=== PATIENT | male | born 1945 | race Caucasian/White ===

== ENCOUNTER 2019-06-20 06:43 | Day surgery (SDC) | payer MEDICARE ==
[2019-06-15 15:42] VITALS: BMI 31.4
[~2019-06-20 06:43] MED LIST: ALPRAZolam 0.25 MG TAB PO PRN; ALPRAZolam 0.5 MG TAB PO PRN; NITROGLYCERIN SL TABS 0.4 MG TAB SUBLINGUAL PRN; SODIUM CHLORIDE 0.9% 1,000 ML in EMPTY BAG 1 BAG IV ONE
[2019-06-20] MEDS ORDERED: ATORVASTATIN 80 MG TAB PO ONE (07:00)
[2019-06-20] MEDS ORDERED: ASPIRIN 325 MG TAB PO ONE (07:00)
[2019-06-20] MEDS ORDERED: LIDOCAINE 1% INJ 10MG/ML (20 ML MDV) ONE (07:13)
[2019-06-20] MEDS ORDERED: fentaNYL (PF) 50 MCG/ML 2 ML AMP ONE (07:14)
[2019-06-20 07:19] VITALS: TEMP 97.9
[2019-06-20 07:19] LABS: Glucose,Whole Blood 124 mg/dL (75-99)
[2019-06-20] MEDS ORDERED: LIDOCAINE 1% INJ 10MG/ML (20 ML MDV) SQ ONE (07:49)
[2019-06-20] MEDS ORDERED: fentaNYL (PF) 50 MCG/ML 2 ML AMP IVP ONE (07:50)
[2019-06-20] MEDS ORDERED: MIDAZOLAM 2 MG/2 ML VIAL IVP ONE (07:51)
[2019-06-20] MEDS ORDERED: IOPAMIDOL-370 125ML BTL INJ ONE (08:13)
[2019-06-20] MEDS ORDERED: RX INFO: IV CONTRAST WAS GIVEN 1 EACH MISC MISCELLANE PRN ×2 (08:30→08:44)
[2019-06-20] MEDS ORDERED: SODIUM CHLORIDE 0.9% 1,000 ML IV SCH (08:30)
[2019-06-20] MEDS ORDERED: hydrALAZINE HCL 20 MG/ML 1 ML VIAL ONE (08:42)
[2019-06-20] MEDS ORDERED: amLODIPine 5 MG TAB ONE (08:42)
--- NOTE | 2019-06-20 08:54 | P.CARDCATH ---
Date of Procedure: 06/20/19 Preoperative Diagnosis: Recent onset angina Postoperative Diagnosis: In-stent stenosis involving the left main and proximal circumflex Procedure(s) Performed: Left heart catheterization with selective injection of the 2 vein grafts and the LERNER graft and no LV gram Description of Procedure: HISTORY: This is a 73-year-old gentleman with history of of bypass surgeries 2 and also several stent placement and also aortic valve replacement with transcatheter approach. He also had a history of previous cardiac arrest and AICD placement. Patient has been experiencing chest pain size to of new-onset angina. He is advised to have a cardiac catheterization for definitive diagnosis CONSENT:I have discussed the risks, benefits and alternative therapies for the above-mentioned procedure and for both sedation/analgesia as well as necessary blood product administration, if indicated, as they pertain to this patient. The patient has indicated understanding and acceptance of the risks and procedures discussed. PROCEDURE: Patient was brought to the lab in a fasting state. Patient was given some IV sedation. The right groin is infiltrated with lidocaine and right femoral artery was entered using Seldinger technique. A 6-Greek catheter was left in place and selective coronary arteriography and selective injection of the 2 vein grafts and also LERNER graft was performed. LV gram was not performed Patient tolerated the procedure well. Femoral angiogram was performed and manual compression l was applied for hemostasis. No immediate complications were noted and patient was transferred to [facility] in a stable condition Conscious Sedation: Versed 1mg Fentanyl 50 g Duration 31minutes HEMODYNAMICS: The aortic pressure is about 160/80. Left ventricular end- diastolic pressure was not measured. SELECTIVE CORONARY ARTERIOGRAPHY: LEFT MAIN: The left main coronary artery basically leads into the circumflex with a total occlusion of the LAD. There is a stent that extends from the left main into the proximal circumflex. This stented shows diffuse disease with 70-80% stenosis. The circumflex itself seemed to be free of occlusive disease THE LEFT ANTERIOR DESCENDING CORONARY ARTERY:. This is totally occluded THE LEFT CIRCUMFLEX AND IS CORONARY ARTERY: The proximal circumflex was in-stent stenosis and the rest of the circumflex is free of any significant focal disease THE RIGHT CORONARY ARTERY: This is totally occluded. The LERNER graft to the LAD: This is patent throat its length and also to distal anastomosis. The LAD beyond the anastomosis is moderate in caliber with a diffuse disease without any critical lesions. The vein graft to the OM branch: This is totally occluded in the proximal portion where it was stented on multiple medications. The vein graft to the diagonal. The bypass is patent at the proximal and distal anastomosis. The diagonal branch itself is free of occlusive disease. There is a mild to moderate disease in one of the side branches. LEFT VENTRICULOGRAPHY: Not performed FINAL IMPRESSION: Critical lesion involving the stented area of the left main and proximal circumflex. The vein graft to the diagonal and LERNER graft to the LAD and patent. The vein graft to the circumflex is totally occluded. The [place] LAD and [place] RCA totally occluded PLAN: Continuation of medical therapy. . Restenting of the left main and proximal circumflex to be done by Dr. Correia PROGNOSIS: Guarded
[2019-06-20 12:36] VITALS: RESP 16
[2019-06-20 13:57] VITALS: BP 129/63; PULSE 49
== END 2019-06-20 15:49 | disposition home or self-care (01) ==
LOC: CATHCVL 06:43
PROVIDERS: ATTEND Internal Medicine Cardiovascular Disease
DX: I25.119 Atherosclerotic heart disease of native coronary artery with unspecified angina pectoris (principal); T82.855A Stenosis of coronary artery stent, initial encounter; I25.719 Atherosclerosis of autologous vein coronary artery bypass graft(s) with unspecified angina pectoris; I25.82 Chronic total occlusion of coronary artery; I10 Essential (primary) hypertension; I25.2 Old myocardial infarction; I42.9 Cardiomyopathy, unspecified; I47.1 Supraventricular tachycardia; Z87.891 Personal history of nicotine dependence; Z95.1 Presence of aortocoronary bypass graft; Z95.5 Presence of coronary angioplasty implant and graft; Z95.810 Presence of automatic (implantable) cardiac defibrillator; Z95.2 Presence of prosthetic heart valve; Z92.3 Personal history of irradiation; Z79.84 Long term (current) use of oral hypoglycemic drugs; Z79.82 Long term (current) use of aspirin; Z79.899 Other long term (current) drug therapy
CPT/HCPCS: 93455; C1769; J2250; J0360; J2001; J3010; Q9967

== ENCOUNTER 2019-06-22 09:03 | Day surgery (SDC) | payer MEDICARE ==
[2019-06-21 09:23] VITALS: BMI 31.4
[~2019-06-22 09:03] MED LIST changes: +ASPIRIN 325 MG TAB PO STA; +ATORVASTATIN 80 MG TAB PO STA
[2019-06-22 09:30] LABS: Glucose,Whole Blood 116 mg/dL (75-99)
[2019-06-22] MEDS ORDERED: SODIUM CHLORIDE 0.9% 1,000 ML IV ONE (09:32)
[2019-06-22] MEDS ORDERED: hydrALAZINE HCL 20 MG/ML 1 ML VIAL IVP STA (09:36)
[2019-06-22 09:37] LABS: Basophils # (A) 0.1 k/uL (0-0.2); Basophils % (A) 1 %; Eosinophils # (A) 0.2 k/uL (0-0.7); Eosinophils % (A) 2 %; HCT 47.8 % (39.0-53.0); Lymphocytes # (A) 1.1 k/uL (1.0-4.8); Lymphocytes % (A) 15 %; MCH 30.3 pg (25.0-35.0); MCHC 33.5 g/dL (31.0-37.0); MCV 90.4 fL (80.0-100.0); Mean Platelet Volume 7.1; Monocytes # (A) 0.4 k/uL (0-1.0); Monocytes % (A) 5 %; Neutrophils # (A) 5.8 k/uL (1.3-7.7); Neutrophils % (A) 76 %; Platelet Count 171 k/uL (150-450); RBC 5.29 m/uL (4.30-5.90); RDW 13.6 % (11.5-15.5); WBC 7.7 k/uL (3.8-10.6)
[2019-06-22 09:56] LABS: African American GFR (CKD) >90 (>60 ml/min/1.73 sqM); Anion Gap 11 mmol/L; Blood Urea Nitrogen 17 mg/dL (9-20); Calcium 10.2 mg/dL (8.4-10.2); Carbon Dioxide 28 mmol/L (22-30); Chloride 102 mmol/L (98-107); Glucose 130 mg/dL (74-99); Potassium 4.5 mmol/L (3.5-5.1); Sodium 141 mmol/L (137-145)
[2019-06-22] MEDS ORDERED: LIDOCAINE 1% INJ 10MG/ML (20 ML MDV) ONE (10:31)
[2019-06-22] MEDS ORDERED: MIDAZOLAM 2 MG/2 ML VIAL IV ONE ×2 (10:43→10:58)
[2019-06-22] MEDS ORDERED: LIDOCAINE 1% INJ 10MG/ML (20 ML MDV) SQ ONE (10:46)
[2019-06-22] MEDS ORDERED: BIVALIRUDIN BOLUS 250 MG/50 ML IV ONE (10:50)
[2019-06-22] MEDS ORDERED: BIVALIRUDIN 250 MG in SODIUM CHLORIDE 0.9% 36.5 ML IV ONE (10:52)
[2019-06-22] MEDS ORDERED: fentaNYL (PF) 50 MCG/ML 2 ML AMP ONE (11:01)
[2019-06-22] MEDS ORDERED: fentaNYL (PF) 50 MCG/ML 2 ML AMP IV ONE (11:03)
[2019-06-22] MEDS ORDERED: PRASUGREL 10 MG TAB ONE (11:16)
[2019-06-22] MEDS ORDERED: HEPARIN SODIUM 1,000 UN/ML (10ML VL) ONE (11:16)
[2019-06-22] MEDS ORDERED: PRASUGREL 10 MG TAB PO ONE (11:26)
[2019-06-22] MEDS ORDERED: IOPAMIDOL-370 125ML BTL INJ ONE (11:27)
[2019-06-22] MEDS ORDERED: SODIUM CHLORIDE 0.9% 1,000 ML IV SCH (11:30)
--- NOTE | 2019-06-22 11:33 | P.PCN ---
Date of Procedure: 06/22/19 Operative Findings: PERCUTANEOUS CORONARY INTERVENTION Performing physician: Frank Correia M.D. Procedure performed: 1. Selective left coronary angiogram 2. Successful stenting of the proximal left circumflex using 3.25 x 18 mm Xience BRYCE with an excellent angiographic results 3. Successful balloon angioplasty of in-stent restenosis involving the left main coronary artery Indication: This is a pleasant 73-year-old gentleman who sees Dr. Holloway in the office as an outpatient with history of coronary artery disease and prior coronary artery stenting as well as coronary artery bypass grafting as well as transcutaneous aortic valve replacement was experiencing symptoms of chest discomfort. He underwent a heart catheterization recently by Dr. Holloway and was found to have severe triple-vessel coronary artery disease with patent LERNER into LAD and patent vein graft to the diagonal. The left circumflex was unprotected and does have disease in the proximal portion. Also there was se jose in-stent restenosis involving the left main coronary artery. Giving the above finding, PCI of the left circumflex and left main was advised. Approach: Right common femoral artery. Complication: None Level of sedation: Moderate with a sedation length of 33 minutes Procedure description: After obtaining an informed consent the patient was brought to the cardiac laborer mine. The right common femoral artery was cannulated using micropuncture technique, the micropuncture wire passed easily then I placed a 6-Chinese sheath 11 cm in the right common femoral artery. At that point anticoagulation was initiated using Angiomax with bolus and drip. I did engage the left main using JL 3.5 guiding catheter. I did wire the left main and left circumflex using a whisper wire. After that I did balloon angioplasty of the left main and left circumflex proximally using 3.0 x 15 mm balloon. After that I did balloon angioplasty again of the left main and left circumflex using 2.5 x 10 mm angiosculp balloon. The balloon was inflated under 18 marcel for 20 seconds each time. Subsequently I did stenting of the proximal left circumflex using 3.25 x 18 mm Xience BRYCE where the stent was positioned under fluoroscopy guidance and deployed under 18 marcel for 20 seconds. After that I did postdilated dictation of the stented segment in the left circumflex using 3.5 x 15 mm NC balloon which was inflated under 20 marcel for 10 seconds inside the stent in the left circumflex then in the left main coronary artery as well. The final angiographic results looks good with reduction of stenosis from 70-80% to 0%. The procedure was completed without any complications Postprocedure management: #1 dual antiplatelet therapy #2 risk factors modifications #3 follow-up with Dr. Dr. Holloway
[2019-06-22] MEDS ORDERED: RX INFO: IV CONTRAST WAS GIVEN 1 EACH MISC MISCELLANE PRN (16:52)
[2019-06-22] MEDS: METOPROLOL TARTRATE 25 MG TAB PO SCH (20:07)
[2019-06-22 21:04] LABS: Glucose,Whole Blood 183 mg/dL (75-99)
[2019-06-22 23:21] VITALS: RESP 18
[2019-06-23 06:05] LABS: Glucose,Whole Blood 115 mg/dL (75-99)
[2019-06-23 07:11] LABS: Basophils % (A) 0 %; Eosinophils # (A) 0.2 k/uL (0-0.7); Eosinophils % (A) 2 %; HCT 45.9 % (39.0-53.0); HGB 15.1 gm/dL (13.0-17.5); Lymphocytes # (A) 1.1 k/uL (1.0-4.8); Lymphocytes % (A) 14 %; MCH 30.1 pg (25.0-35.0); MCHC 32.9 g/dL (31.0-37.0); MCV 91.3 fL (80.0-100.0); Mean Platelet Volume 6.7; Monocytes # (A) 0.5 k/uL (0-1.0); Monocytes % (A) 6 %; Neutrophils # (A) 5.8 k/uL (1.3-7.7); Neutrophils % (A) 76 %; Platelet Count 137 k/uL (150-450); RBC 5.03 m/uL (4.30-5.90); RDW 13.6 % (11.5-15.5); WBC 7.6 k/uL (3.8-10.6)
[2019-06-23 07:31] LABS: African American GFR (CKD) >90 (>60 ml/min/1.73 sqM); Anion Gap 7 mmol/L; Blood Urea Nitrogen 16 mg/dL (9-20); Calcium 9.6 mg/dL (8.4-10.2); Carbon Dioxide 29 mmol/L (22-30); Chloride 103 mmol/L (98-107); Glucose 122 mg/dL (74-99); Potassium 4.7 mmol/L (3.5-5.1); Sodium 139 mmol/L (137-145)
[2019-06-23 08:02] VITALS: PULSE 53
[2019-06-23 08:03] VITALS: BP 185/78; TEMP 97.9
[2019-06-23] MEDS: METOPROLOL TARTRATE 25 MG TAB PO SCH (08:04)
--- NOTE | 2019-06-23 08:22 | P.DS ---
Providers Date of admission: 06/22/2019 Attending physician: Frank Garcia Primary care physician: Calin Meneses MD Hospital Course: This is a pleasant 73-year-old gentleman with a past medical history significant for coronary artery disease with prior stenting and CABG what was experiencing chest discomfort recently and underwent a heart catheterization by Dr. Holloway where he was found to have severe disease involving the left main and proximal left circumflex. The patient underwent yesterday successful balloon angioplasty of the left main coronary artery and successful stenting of the proximal left circumflex coronary artery. I'll follow-up with him today, is doing good and he is asymptomatic. The right groin is soft and nontender and without any bruises. The patient is going to be discharged home on dual antiplatelet therapy and he will follow-up was Dr. Holloway in the office Plan - Discharge Summary Discharge Rx Participant: Yes New Discharge Prescriptions: Continue Isosorbide Mononitrate ER [Imdur] 60 mg PO DAILY Acetaminophen [Tylenol] 500 mg PO DAILY Furosemide [Lasix] 20 mg PO DAILY Atorvastatin [Lipitor] 80 mg PO DAILY Prasugrel [Effient] 10 mg PO DAILY Losartan [Cozaar] 50 mg PO DAILY Aspirin EC [Ecotrin Low Dose] 81 mg PO DAILY Metoprolol Tartrate [Lopressor] 25 mg PO BID Multivit-Min/FA/Lycopen/Lutein [Centrum Silver Tablet] 1 each PO DAILY Discontinued metFORMIN HCL [Glucophage] 1,000 mg PO BID No Action metFORMIN HCL 1,000 mg PO BID Discharge Medication List Acetaminophen [Tylenol] 500 mg PO DAILY 06/15/19 [History] Aspirin EC [Ecotrin Low Dose] 81 mg PO DAILY 06/15/19 [History] Atorvastatin [Lipitor] 80 mg PO DAILY 06/15/19 [History] Furosemide [Lasix] 20 mg PO DAILY 06/15/19 [History] Isosorbide Mononitrate ER [Imdur] 60 mg PO DAILY 06/15/19 [History] Losartan [Cozaar] 50 mg PO DAILY 06/15/19 [History] Metoprolol Tartrate [Lopressor] 25 mg PO BID 06/15/19 [History] Multivit-Min/FA/Lycopen/Lutein [Centrum Silver Tablet] 1 each PO DAILY 06/15/19 [History] Prasugrel [Effient] 10 mg PO DAILY 06/15/19 [History] metFORMIN HCL 1,000 mg PO BID 06/22/19 [History] Follow up Appointment(s)/Referral(s): Negrito Holloway MD [STAFF PHYSICIAN] - 06/30/19 1:15 pm () Patient Instructions/Handouts: *Surgery [facility] - After Heart Catheterization - Meat [employer]ver Instructions, Left Heart Catheterization (DC)
[2019-06-23] MEDS ORDERED: LOSARTAN 50 MG TAB PO SCH (09:00)
[2019-06-23] MEDS ORDERED: ISOSORBIDE MONONITRATE ER 60 MG TAB.ER.24H PO SCH (09:00)
[2019-06-23] MEDS ORDERED: FUROSEMIDE 20 MG TAB PO SCH (09:00)
[2019-06-23] MEDS ORDERED: ACETAMINOPHEN TAB 500 MG TAB PO SCH (09:00)
[2019-06-23] MEDS ORDERED: MULTIVITAMINS, THERA 1 EACH TAB PO SCH (09:00)
[2019-06-23] MEDS ORDERED: ATORVASTATIN 80 MG TAB PO SCH (09:00)
[2019-06-23] MEDS ORDERED: PRASUGREL 10 MG TAB PO SCH (09:00)
[2019-06-23] MEDS ORDERED: ASPIRIN 81 MG PO SCH (09:00)
== END 2019-06-23 09:52 | disposition home or self-care (01) ==
LOC: CATHCVL 09:03 → 3SCARD 16:37 → CATHCVL 06-23 09:52
PROVIDERS: ATTEND Internal Medicine Interventional Cardiology
DX: I25.10 Atherosclerotic heart disease of native coronary artery without angina pectoris (principal); T82.855A Stenosis of coronary artery stent, initial encounter; I10 Essential (primary) hypertension; I47.2 Ventricular tachycardia; I42.9 Cardiomyopathy, unspecified; E78.5 Hyperlipidemia, unspecified; E11.9 Type 2 diabetes mellitus without complications; E78.00 Pure hypercholesterolemia, unspecified; Z87.891 Personal history of nicotine dependence; Z92.3 Personal history of irradiation; E66.9 Obesity, unspecified; Z68.30 Body mass index [BMI] 30.0-30.9, adult; I25.2 Old myocardial infarction; Z95.5 Presence of coronary angioplasty implant and graft; Z95.810 Presence of automatic (implantable) cardiac defibrillator; Z95.1 Presence of aortocoronary bypass graft; Z95.2 Presence of prosthetic heart valve; Z79.84 Long term (current) use of oral hypoglycemic drugs
CPT/HCPCS: 92920; 80048 ×2; 85025 ×2; C9600; C1769 ×3; C1887 ×2; C1725 ×3; C1894; C1874; J2250; J0360; J2001; J3010; J0583; Q9967

== ENCOUNTER 2020-09-18 08:59 | Inpatient (IN) | payer MEDICARE ==
[2020-09-18] MEDS ORDERED: NITROGLYCERIN OINT 1 INCH/GM PACKET TOPICAL STA (09:09)
--- NOTE | 2020-09-18 09:12 | ED ---
General Adult HPI - General Chief complaint: Chest Pain Stated complaint: chest pain Source: patient Mode of arrival: EMS Limitations: no limitations - History of Present Illness Initial comments: Dictation was produced using [employer] dictation software. please excuse any grammatical, word or spelling errors. This patient was cared for during a federal and state declared state of emergency secondary to Covid 19 Chief Complaint: 75-year-old male presents as a transfer from [facility] for unstable angina History of Present Illness: 75-year-old male who has past medical history of coronary artery disease, status post CABG and coronary artery stents. Presents to us after initially presenting to [facility] for chest pain. Patient states he woke up this morning with substernal chest pressure. Denies any radiation of symptoms to his shoulders or jaw. He took 2 nitroglycerin without any alleviation of his symptoms. He read that [facility] where he was evaluated. His first troponin was negative. His EKG was concerning for ischemia versus ST segment elevation [place]. I did get some history from Dr. Ford at [facility]. Initially,, He did mention that there was concerning ST changes which may represent STEMI. Subsequently I received a call after from Dr. Ford who did not feel patient's clinical presentation was consistent with ST segment elevation [place] but instead unstable angina. He started on nitroglycerin drip. Patient was started on nitroglycerin drip at [facility] his symptoms improved. Patient is a history of H fibrillation. He takes apixaban and metoprolol for his A. fib. He did not take his metoprolol this morning. Patient evaluated at the bedside found to be stable. Denies any chest pain currently. He feels asymptomatic. The ROS documented in this emergency department record has been reviewed and confirmed by me. Those systems with pertinent positive or negative responses have been documented in the HPI. All other systems are other negative and/or noncontributory. PHYSICAL EXAM: General Impression: Alert and oriented x3, not in acute distress HEENT: Normocephalic atraumatic, extra-ocular movements intact, pupils equal and reactive to light bilaterally, mucous membranes moist. Cardiovascular: Heart regular rate and rhythm Chest: Able to complete full sentences, no retractions, no tachypnea Abdomen: abdomen soft, non-tender, non-distended, no organomegaly Musculoskeletal: Pulses present and equal in all extremities, no peripheral edema Motor: no focal deficits noted Neurological: CN II-XII grossly intact, no focal motor or sensory deficits noted Skin: Intact with no visualized rashes Psych: Normal affect and mood ED course: 5-year-old male transfer from [facility] for unstable angina. Transfer documentation was reviewed. Patient had negative labs. He did have multiple EKGs which were reviewed that show some ST changes concerning for acute coronary syndrome. Repeat EKG was performed immediately after being placed in room 6. EKG shows A. fib with RVR with a ventricular rate of 120 QRS 136 and QTc 12/03/2004. He does have a right bundle branch block without any concerning findings for ischemia or infarction. In fact his EKG is comparable to EKG performed on 06/22/2019. Heating Operators Engineer Dr. Holloway was called prior to patient's arrival in our emergency department. Upon patient's arrival in the emergency Department Dr. Holloway evaluated patient. Patient is benign appearing with EKG not showing STEMI. No indication for record label internship activation at this time. Case discussed Dr. park who is willing to accept patients care. EKG interpretation: Ventricular rate 120, a fibrillation with rapid ventricular rate, QRS 136, QTC 505. No NV prolongation, no QTC prolongation, no ST or T-wave changes noted. EKG compared to per showing no changes. Overall, this EKG is unremarkable - Related Data Home Medications Medication Instructions Recorded Confirmed Acetaminophen [Tylenol] 500 mg PO DAILY 06/15/19 06/21/19 Aspirin EC [Ecotrin Low Dose] 81 mg PO DAILY 06/15/19 06/22/19 Atorvastatin [Lipitor] 80 mg PO DAILY 06/15/19 06/22/19 Furosemide [Lasix] 20 mg PO DAILY 06/15/19 06/22/19 Isosorbide Mononitrate ER [Imdur] 60 mg PO DAILY 06/15/19 06/22/19 Losartan [Cozaar] 50 mg PO DAILY 06/15/19 06/22/19 Metoprolol Tartrate [Lopressor] 25 mg PO BID 06/15/19 06/22/19 Multivit-Min/FA/Lycopen/Lutein 1 each PO DAILY 06/15/19 06/22/19 [Centrum Silver Tablet] Prasugrel [Effient] 10 mg PO DAILY 06/15/19 06/22/19 metFORMIN HCL 1,000 mg PO BID 06/22/19 06/22/19 Allergies Allergy/AdvReac Type Severity Reaction Status Date / Time No Known Allergies Allergy Verified 09/18/20 09:08 Review of Systems ROS Statement: Those systems with pertinent positive or pertinent negative responses have been documented in the HPI. ROS Other: All systems not noted in ROS Statement are negative. Past Medical History Past Medical History: Atrial Fibrillation, Chest Pain / Angina, Diabetes Mellitus, Hyperlipidemia, Hypertension, Myocardial Infarction ([place]), Sleep Apnea/CPAP/BIPAP Last Myocardial Infarction Date:: 1993 History of Any Multi-Drug Resistant Organisms: None Reported Past Surgical History: Appendectomy, Coronary Bypass/CABG, Heart Cathet erization, Heart Catheterization With Stent, Tonsillectomy Additional Past Surgical History / Comment(s): stenting and angioplasty left lower extremity and heart cath 06-20-19,CABG x2, aortic valve replaced,brachytherapy,. 06/22/2019- heart cath stent x1 L Circ, and ballon to L main Past Anesthesia/Blood Transfusion Reactions: No Reported Reaction Date of Last Stent Placement:: 2018 Past Psychological History: No Psychological Hx Reported Smoking Status: Former smoker Past Alcohol Use History: Rare Past Drug Use History: None Reported - Past Family History Mother Family Medical History: No Reported History Additional Family Medical History / Comment(s): Heart disease at 64 Father Family Medical History: Prostate Disorder Additional Family Medical History / Comment(s): of Uremic poisioning, had heart disease. Bladder or prostate CA, General Exam Limitations: no limitations Course Vital Signs 09/18/20 09/18/20 09:00 09:17 Temperature 98.2 F Pulse Rate 120 H 87 Respiratory 16 18 Rate Blood Pressure 126/106 138/109 O2 Sat by Pulse 98 98 Oximetry Disposition Clinical Impression: ACS (acute coronary syndrome) Disposition: ADMITTED IP TO THIS HOSP Condition: Fair Referrals: Calin eMneses MD [Primary Care Provider] - 1-2 days Decision Time: 09:41
[2020-09-18] MEDS ORDERED: METOPROLOL TARTRATE 5 MG/5 ML VIAL IVP SCH (09:15)
[2020-09-18] MEDS ORDERED: NITROGLYCERIN SL TABS 0.4 MG TAB SUBLINGUAL PRN ×2 (09:35→11:22)
[2020-09-18] MEDS ORDERED: ALPRAZolam 0.5 MG TAB PO PRN (11:22)
[2020-09-18] MEDS ORDERED: ALPRAZolam 0.25 MG TAB PO PRN (11:22)
[2020-09-18] MEDS ORDERED: METOPROLOL TARTRATE 50 MG TAB PO STA (12:11)
[2020-09-18] MEDS ORDERED: amLODIPine 5 MG TAB PO STA (12:14)
[2020-09-18] MEDS ORDERED: HEPARIN SODIUM,PORCINE 5,000 UNIT/ML 1 ML VIAL IV ONE (12:14)
[2020-09-18] MEDS ORDERED: HEPARIN SODIUM,PORCINE 5,000 UNIT/ML 1 ML VIAL IV PRN (12:14)
[2020-09-18 12:25] LABS: Basophils # (A) 0.1 k/uL (0-0.2); Basophils % (A) 1 %; Eosinophils # (A) 0.1 k/uL (0-0.7); Eosinophils % (A) 2 %; HCT 48.8 % (39.0-53.0); HGB 16.2 gm/dL (13.0-17.5); Lymphocytes % (A) 12 %; MCH 29.5 pg (25.0-35.0); MCHC 33.2 g/dL (31.0-37.0); Mean Platelet Volume 9.6; Monocytes # (A) 0.4 k/uL (0-1.0); Monocytes % (A) 5 %; Neutrophils # (A) 6.6 k/uL (1.3-7.7); Neutrophils % (A) 79 %; Platelet Count 155 k/uL (150-450); RBC 5.49 m/uL (4.30-5.90); RDW 13.7 % (11.5-15.5); WBC 8.3 k/uL (3.8-10.6)
[2020-09-18] MEDS ORDERED: ATORVASTATIN 80 MG TAB PO ONE (12:30)
[2020-09-18] MEDS ORDERED: DEXTROSE 5% IN WATER 100 ML with AMIODARONE 150 MG IV ONE (12:30)
[2020-09-18 12:31] LABS: African American GFR (CKD) >90 (>60 ml/min/1.73 sqM); Anion Gap 9 mmol/L; Blood Urea Nitrogen 13 mg/dL (9-20); Calcium 9.8 mg/dL (8.4-10.2); Carbon Dioxide 27 mmol/L (22-30); Chloride 103 mmol/L (98-107); Glucose 148 mg/dL (74-99); Non-African American GFR(CKD) 87 (>60 ml/min/1.73 sqM); Potassium 4.5 mmol/L (3.5-5.1); Sodium 139 mmol/L (137-145)
--- NOTE | 2020-09-18 12:31 | P.HPIM ---
History of Present Illness This is a pleasant 75 years old male with past medical history of coronary artery disease status post prior stenting and CABG. She had repeat cardiac cath last year and found to have severe disease involving the left main and proximal left circumflex arteries status post PCI and stent of the left circumflex artery and balloon angioplasty of the left main coronary artery. His locks tender is Dr. Holloway. Other medical problems including atrial fibrillation on Eliquis, diabetes mellitus, hypertension, hyperlipidemia. Patient was transferred from [facility] where he presented there for having chest pain started this a.m. about 4:00, 3:00 pressure, central, nonradiating 90/10 in severity with no associated shortness of breath or coughing. No dizziness or palpitation. He denies smoking, alcohol or illicit drugs At [facility] his sodium was 137, potassium 4, glucose 152, calcium 9.8, creatinine 0.9, chloride a is not detected, troponin less than 0.03, WBC 8.5K, platelets 150 1K, hemoglobin 16.3. Chest x-ray report is reviewed which mentioned and no consolidation. After his been transferred and he got treated in the emergency room he developed an episode of hypotension, locks tender placed him on amiodarone drip On admission his troponin is elevated 0.06 EKG showing atrial fibrillation with heart rate of 120 Review of Systems CONSTITUTIONAL: No fever, no malaise, no fatigue. HEENT: No recent visual problems or hearing problems. Denied any sore throat. CARDIOVASCULAR: No orthopnea, PND, no palpitations, no syncope. PULMONARY: No shortness of breath, no cough, no hemoptysis. GASTROINTESTINAL: No diarrhea, no nausea, no vomiting, no abdominal pain. Normoactive bowel sounds. NEUROLOGICAL: No headaches, no weakness, no numbness. HEMATOLOGICAL: Denies any bleeding or petechiae. GENITOURINARY: Denies any burning micturition, frequency, or urgency. MUSCULOSKELETAL/RHEUMATOLOGICAL: Denies any joint pain, swelling, or any muscle pain. ENDOCRINE: Denies any polyuria or polydipsia. Past Medical History Past Medical History: Atrial Fibrillation, Chest Pain / Angina, Diabetes Mellitus, Hyperlipidemia, Hypertension, Myocardial Infarction ([place]), Sleep Apnea/CPAP/BIPAP Last Myocardial Infarction Date:: 1993 History of Any Multi-Drug Resistant Organisms: None Reported Past Surgical History: Appendectomy, Coronary Bypass/CABG, Heart Catheterization, Heart Catheterization With Stent, Tonsillectomy Additional Past Surgical History / Comment(s): stenting and angioplasty left lower extremity and heart cath 06-20-19,CABG x2, aortic valve replaced,brachytherapy,. 06/22/2019- heart cath stent x1 L Circ, and ballon to L main Past Anesthesia/Blood Transfusion Reactions: No Reported Reaction Date of Last Stent Placement:: 2018 Past Psychological History: No Psychological Hx Reported Smoking Status: Former smoker Past Alcohol Use History: Rare Past Drug Use History: None Reported - Past Family History Mother Family Medical History: No Reported History Additional Family Medical History / Comment(s): Heart disease at 64 Father Family Medical History: Prostate Disorder Additional Family Medical History / Comment(s): of Uremic poisioning, had heart disease. Bladder or prostate CA, Medications and Allergies Home Medications Medication Instructions Recorded Confirmed Type Aspirin EC [Ecotrin Low Dose] 81 mg PO DAILY 06/15/19 09/18/20 History Atorvastatin [Lipitor] 80 mg PO DAILY 06/15/19 09/18/20 History Furosemide [Lasix] 20 mg PO DAILY 06/15/19 09/18/20 History Isosorbide Mononitrate ER [Imdur] 60 mg PO DAILY 06/15/19 09/18/20 History Losartan [Cozaar] 50 mg PO DAILY 06/15/19 09/18/20 History Metoprolol Tartrate [Lopressor] 25 mg PO BID 06/15/19 09/18/20 History Multivit-Min/FA/Lycopen/Lutein 1 tab PO DAILY 06/15/19 09/18/20 History [Centrum Silver Tablet] metFORMIN HCL 1,000 mg PO BID 06/22/19 09/18/20 History Apixaban [Eliquis] 5 mg PO BID 09/18/20 09/18/20 History Aspirin 324 mg PO ONCE PRN 09/18/20 09/18/20 History Nitroglycerin Sl Tabs [Nitrostat] 0.4 mg SL Q5M PRN 09/18/20 09/18/20 History Tamsulosin [Flomax] 0.4 mg PO DAILY 09/18/20 09/18/20 History traZODone HCL 50 mg PO HS 09/18/20 09/18/20 History Allergies Allergy/AdvReac Type Severity Reaction Status Date / Time No Known Allergies Allergy Verified 09/18/20 09:42 Physical Exam Vitals: Vital Signs Temp Pulse Resp BP Pulse Ox 09/18/20 12:05 133 H 18 213/138 98 09/18/20 10:30 66 20 97 09/18/20 10:00 75 16 146/91 98 09/18/20 09:17 87 18 138/109 98 09/18/20 09:00 98.2 F 120 H 16 126/106 98 Intake and Output 09/17/20 09/18/20 09/18/20 22:59 06:59 14:59 Other: Weight 87.543 kg GENERAL: The patient is alert and oriented x3, not in any acute distress. Well developed, well nourished. HEENT: Pupils are round and equally reacting to light. EOMI. No scleral icterus. No conjunctival pallor. Normocephalic, atraumatic. No pharyngeal erythema. No thyromegaly. CARDIOVASCULAR: S1 and S2 present. No murmurs, rubs, or gallops. -PULMONARY: Chest is clear to auscultation, no wheezing or crackles. Central chest wall scar ABDOMEN: Soft, nontender, nondistended, normoactive bowel sounds. No palpable organomegaly. MUSCULOSKELETAL: No joint swelling or deformity. EXTREMITIES: No cyanosis, clubbing, or pedal edema. NEUROLOGICAL: Gross neurological examination did not reveal any focal deficits. SKIN: No rashes. No petechiae Results Labs: Abnormal Lab Results - Last 24 Hours (Table) 09/18/20 Range/Units 09:18 Troponin I 0.065 H* (0.000-0.034) ng/mL Assessment and Plan Assessment: None STEMI, and in view of his history of coronary artery disease status post CABG, stenting of the left circumflex artery Chronic A. fib with RVR, was on Eliquis 2 diabetes mellitus Hypertension Hyperlipidemia Plan: This is a pleasant 75 years old male who presents with unstable angina and A. fib with RVR, he is already on Eliquis anticoagulation, which is his wish to heparin drip and so started on amiodarone drip and continue with beta everardo and nitroglycerin. Cardiology consult. Continue with aspirin Labs and medication were reviewed.. Continue same treatment. Continue with symptomatic treatment. Resume home medication. Monitor lytes and vitals. DVT and GI prophylaxis. Further recommendations depends on the clinical course of the patient DVT prophylaxis: heparin GI Prophylaxis: Pepcid PT/OT: Pending Prognosis is guarded
[2020-09-18] MEDS ORDERED: AMIODARONE 360 MG in DEXTROSE 5% IN WATER 200 ML IV ONE ×2 (12:40)
[2020-09-18 12:43] LABS: Partial Thromboplastin Time 26.2 sec (22.0-30.0); Prothrombin Time 10.9 sec (9.0-12.0)
[2020-09-18] MEDS: HEPARIN SOD,PORK IN 0.45% NACL 25,000 UNIT in 0.45% NACL 1 250ML.BAG IV SCH (12:44)
[2020-09-18] MEDS: LOSARTAN 50 MG TAB PO SCH (12:52)
[2020-09-18] MEDS: ATORVASTATIN 80 MG TAB PO ONE (12:52)
[2020-09-18] MEDS: FUROSEMIDE 20 MG TAB PO SCH (12:52)
[2020-09-18 16:55] LABS: Glucose,Whole Blood 144 mg/dL (75-99)
[2020-09-18] MEDS: INSULIN ASPART (NovoLOG) 100 UNIT/ML VIAL SQ SCH ×3 (17:29→21:17)
[2020-09-18] MEDS: ISOSORBIDE MONONITRATE ER 60 MG TAB.ER.24H PO SCH (17:30)
--- NOTE | 2020-09-18 17:39 | ECHOF ---
Referral Reason:LV function MEASUREMENTS -------- HEIGHT: 167.6 cm WEIGHT: 87.5 kg BP: 173/92 RVIDd: 3.5 cm (< 3.3) IVSd: 1.4 cm (0.6 - 1.1) LVIDd: 3.4 cm (3.9 - 5.3) LVPWd: 1.3 cm (0.6 - 1.1) IVSs: 1.7 cm LVIDs: 2.7 cm LVPWs: 1.7 cm LA Diam: 4.1 cm (2.7 - 3.8) LAESV Index (A-L): 45.44 ml/m Ao Diam: 3.0 cm (2.0 - 3.7) AV Cusp: 1.8 cm (1.5 - 2.6) MV EXCURSION: 7.744 mm (> 18.000) MV EF SLOPE: 31 mm/s (70 - 150) EPSS: 1.3 cm AV maxP.36 mmHg AV meanP.25 mmHg RAP: 5.00 mmHg RVSP: 28.81 mmHg FINDINGS -------- Atrial fibrillation. Pacerwire seen in RV and RA. This was a technically difficult study with suboptimal views. The left ventricular size is normal. There is moderate concentric left ventricular hypertrophy. O verall left ventricular systolic function is normal with, an EF between 55 - 60 %. The right ventricle is mildly enlarged. LA is severely dilated >40 ml/m2 3 ml of Lumason was utilized for enhancement of images. Interatrial and interventricular septum intact. There is mild aortic valve sclerosis. Moderate mitral annular calcification present. Mild mitral regurgitation is present. Mild mitral stenosis. Mild tricuspid regurgitation present. Right ventricular systolic pressure is normal at < 35 mmHg. The right ventricular systolic pressure, as measured by Doppler, is 28.81mmHg. The pulmonic valve was not well visualized. The aortic root size is normal. Normal inferior vena cava with normal inspiratory collapse consistent with estimated right atrial pre ssure of 5 mmHg. There is no pericardial effusion. CONCLUSIONS -------- 1. This was a technically difficult study with suboptimal views. 2. There is moderate concentric left ventricular hypertrophy. 3. Overall left ventricular systolic function is normal with, an EF between 55 - 60 %. 4. The right ventricle is mildly enlarged. 5. LA is severely dilated >40 ml/m2 6. There is mild aortic valve sclerosis. 7. Moderate mitral annular calcification present. 8. Mild mitral regurgitation is present. 9. Mild mitral stenosis. 10. Mild tricuspid regurgitation present. 11. There is no pericardial effusion. SHOER: Willa Mays RDCS
[2020-09-18] MEDS ORDERED: SODIUM CHLORIDE 0.9% 1,000 ML in EMPTY BAG 1 BAG IV ONE (18:00)
[2020-09-18] MEDS ORDERED: AMIODARONE 450 MG in DEXTROSE 5% IN WATER 250 ML IV SCH ×2 (18:30)
--- NOTE | 2020-09-18 19:08 | CONS ---
CONSULTATION Mr. Levine is a 75-year-old gentleman with a history of ischemic heart disease with previous bypass surgery x2. The patient also had several stent placements. The patient had a catheterization in May of last year and had restenting of the left main and proximal left circumflex coronary arteries. At that time he was found to have a patent LERNER graft to the LAD, and vein grafts to the diagonal were patent. The vein graft to the circumflex was totally occluded. The [place] LAD and [place] RCA were totally occluded. The patient had repeat stenting of the left main and circumflex coronary arteries. Now the patient presented to the hospital with complaints of chest pain starting this morning when he woke up. The patient took some nitroglycerin at home, with partial relief. Subsequently paramedics were called and the patient went to the emergency room of [facility]. The patient was initiated on IV nitroglycerin with relief of pain. His EKG showed atrial fibrillation with variable ventricular response and right bundle branch block pattern without any acute change of STEMI. However, his symptoms are suggestive of unstable angina and possible non-STEMI. He is being admitted to the hospital. The patient most probably will be evaluated by cardiac catheterization tomorrow. PAST MEDICAL HISTORY: His past medical history is significant for coronary artery disease and bypass surgery x2, previous myocardial infarction and cardiac arrest, AICD placement, aortic valve replacement with a tissue valve, multiple stent placements, and the graft to the circumflex which is totally occluded. His past medical history is also significant for hypertension, hyperlipidemia, diabetes mellitus, sleep apnea and recently atrial fibrillation. The patient was on Xarelto. MEDICATIONS: His medications prior to admission included: 1. Metformin 1000 mg b.i.d. 2. Trazodone 50 mg at bedtime. 3. Flomax. 4. Nitroglycerin sublingually. 5. Metoprolol tartrate 25 mg b.i.d. 6. Losartan 50 mg daily. 7. Isosorbide mononitrate 60 mg daily. 8. Lasix 20 mg daily. 9. Atorvastatin 80 mg daily. 10.Aspirin. 11.Eliquis 5 mg p.o. b.i.d. ALLERGIES: NO KNOWN ALLERGIES. REVIEW OF SYSTEMS: As per the chart. PHYSICAL EXAMINATION: Physical examination at this time reveals a 75-year-old gentleman who is alert, oriented, does not appear to be in acute distress at the time of my examination. His blood pressure is running about 160/75, pulse is about 80 to 100. Respirations are 17. Lungs appear to be clear. Heart is regular. Soft systolic murmur heard. Abdomen is soft. Extremities have no significant edema. EKG showed atrial fibrillation with a rapid ventricular response and also right bundle branch block. FINAL IMPRESSION: 1. Unstable angina/cah-[id number]-elevation myocardial infarction. 2. Ischemic heart disease with previous bypass surgery x2 and also multiple stent placements. 3. Previous myocardial infarction and cardiac arrest. 4. Status post aortic valve replacement with bovine valve. 5. Diabetes mellitus. 6. Hypertension. 7. Hypercholesterolemia. PLAN: Will continue IV nitroglycerin and heparin. Will hold Eliquis. We also may start him on amiodarone for better control of heart rate. If necessary, we will add Norvasc for blood pressure control. Echocardiogram will be obtained. Further recommendations will depend upon the clinical course. The patient is being scheduled for catheterization tomorrow. Patient is fully aware of the risks and benefits of the procedure. MMODL / IJN: [id number] /
[2020-09-18 20:43] LABS: Glucose,Whole Blood 178 mg/dL (75-99)
[2020-09-18] MEDS ORDERED: METOPROLOL TARTRATE 25 MG TAB PO SCH (21:00)
[2020-09-18] MEDS: traZODone HCL 50 MG TAB PO SCH (21:09)
[2020-09-18] MEDS: FAMOTIDINE 20 MG/2 ML VIAL IV SCH (21:17)
[2020-09-18] MEDS: METOPROLOL TARTRATE 12.5 MG TAB PO SCH (21:18)
[2020-09-19 05:58] LABS: Glucose,Whole Blood 119 mg/dL (75-99)
[2020-09-19] MEDS: INSULIN ASPART (NovoLOG) 100 UNIT/ML VIAL SQ SCH ×4 (06:35→20:43)
[2020-09-19] MEDS: ISOSORBIDE MONONITRATE ER 60 MG TAB.ER.24H PO SCH (06:41)
[2020-09-19] MEDS: ATORVASTATIN 80 MG TAB PO ONE (06:41)
[2020-09-19] MEDS: FAMOTIDINE 20 MG/2 ML VIAL IV SCH ×2 (06:41→20:43)
[2020-09-19] MEDS: TAMSULOSIN 0.4 MG CAP.ER.24H PO SCH (06:41)
[2020-09-19] MEDS: LOSARTAN 50 MG TAB PO SCH (06:41)
[2020-09-19] MEDS ORDERED: ASPIRIN 325 MG TAB PO ONE (07:00)
[2020-09-19] MEDS ORDERED: HEPARIN SODIUM,PORCINE 10,000 UNIT in SODIUM CHLORIDE 0.9% 1,000 ML IRRIGATION PRN (07:00)
[2020-09-19] MEDS ORDERED: HEPARIN SODIUM,PORCINE 2,500 UNIT in SODIUM CHLORIDE 0.9% 250 ML IRRIGATION PRN (07:00)
[2020-09-19] MEDS ORDERED: LIDOCAINE 1% INJ 10MG/ML (20 ML MDV) ONE ×2 (08:28→09:23)
[2020-09-19] MEDS ORDERED: ASPIRIN 81 MG PO SCH (09:00)
[2020-09-19] MEDS ORDERED: ASPIRIN 325 MG TAB PO SCH (09:00)
[2020-09-19] MEDS ORDERED: fentaNYL (PF) 50 MCG/ML 2 ML AMP ONE (09:08)
[2020-09-19] MEDS ORDERED: MIDAZOLAM 2 MG/2 ML VIAL IVP ONE (09:11)
[2020-09-19] MEDS ORDERED: fentaNYL (PF) 50 MCG/ML 2 ML AMP IVP ONE (09:11)
[2020-09-19] MEDS ORDERED: IV FLUID CONTINUATION 600 ML IV ONE (09:12)
[2020-09-19 09:16] LABS: Basophils % (A) 1 %; Eosinophils # (A) 0.2 k/uL (0-0.7); Eosinophils % (A) 2 %; HCT 42.7 % (39.0-53.0); Lymphocytes # (A) 1.4 k/uL (1.0-4.8); Lymphocytes % (A) 19 %; MCH 29.9 pg (25.0-35.0); MCHC 32.8 g/dL (31.0-37.0); Monocytes # (A) 0.4 k/uL (0-1.0); Monocytes % (A) 6 %; Neutrophils # (A) 5.3 k/uL (1.3-7.7); Neutrophils % (A) 72 %; Platelet Count 115 k/uL (150-450); RDW 13.6 % (11.5-15.5); WBC 7.3 k/uL (3.8-10.6)
[2020-09-19] MEDS ORDERED: LIDOCAINE 1% INJ 10MG/ML (20 ML MDV) SQ ONE ×2 (09:20→09:26)
[2020-09-19 09:27] LABS: Cholesterol 121 mg/dL (<200); HDL Cholesterol 38 mg/dL (40-60); LDL Cholesterol,Calculated 68 mg/dL (0-99); Triglycerides 73 mg/dL (<150)
[2020-09-19] MEDS ORDERED: ENALAPRILAT 1.25 MG/ML 1 ML VIAL ONE (09:35)
[2020-09-19] MEDS ORDERED: ENALAPRILAT 1.25 MG/ML 1 ML VIAL IVP ONE (09:36)
[2020-09-19] MEDS ORDERED: LABETALOL 5 MG/ML VIAL MDV IVP STA (09:59)
[2020-09-19] MEDS ORDERED: IOPAMIDOL-370 125ML BTL INJ ONE (10:00)
[2020-09-19] MEDS ORDERED: RX INFO: IV CONTRAST WAS GIVEN 1 EACH MISC MISCELLANE PRN (10:00)
[2020-09-19] MEDS ORDERED: LABETALOL SYRINGE 5 MG/ML IVP STA (10:08)
--- NOTE | 2020-09-19 10:09 | P.CARDCATH ---
Date of Procedure: 09/19/20 Preoperative Diagnosis: Non-STEMI, atrial fibrillation, ischemic heart disease Postoperative Diagnosis: Stable coronary artery disease with diffuse disease Procedure(s) Performed: Left heart catheterization with selective coronary arteriography without left ventriculography. Selective injection of the 2 vein grafts and the LERNER graft Description of Procedure: HISTORY: This is a 75-year-old gentleman with history of ischemic heart disease with previous MS and cardiac arrest, previous bypass surgery 2 and also multiple stent placements and also history of AICD implantation was admitted to the hospital with complaints of chest pain and evidence of positive troponins, suggestive of non-STEMI. He is advised to have a cardiac catheterization for definitive diagnosis CONSENT:I have discussed the risks, benefits and alternative therapies for the above-mentioned procedure and for both sedation/analgesia as well as necessary blood product administration, if indicated, as they pertain to this patient. The patient has indicated understanding and acceptance of the risks and procedures discussed. PROCEDURE: Patient was brought to the lab in a fasting state. Patient was given some IV sedation. The right groin is infiltrated with lidocaine and right femoral artery was entered using Seldinger technique. A 6-[place]ib[place] catheter was left in place and selective coronary arteriography and selective injection of the LERNER graft and vein grafts was performed. Patient tolerated the procedure well. Femoral angiogram was performed and manual compression was applied for hemostasis. No immediate complications were noted and patient was transferred to [facility] in a stable condition Conscious Sedation: Versed 1mg Fentanyl 25 g Duration 41minutes HEMODYNAMICS: The aortic pressure is about 180/70. The left ventricular end- diastolic pressure was not measured SELECTIVE CORONARY ARTERIOGRAPHY: LEFT MAIN: The left main coronary artery extends mainly as circumflex. He has previous stent placements. The rate is about 40% ostial narrowing which is chronic and stable since last procedure. The rest of the circumflex is free of occlusive disease THE LEFT ANTERIOR DESCENDING CORONARY ARTERY:. This is 100% occluded in the proximal portion THE LEFT CIRCUMFLEX AND IS CORONARY ARTERY: Occlusion of the OM branches THE RIGHT CORONARY ARTERY: Totally occluded in the proximal to midportion . The vein graft to diagonal: This is patent at the proximal anastomosis. There is about 70-80% stenosis in the distal portion but involving the acute bend. This has been stable compared to the previous study. The vein graft to the circumflex: This is chronically occluded. The LERNER graft to the LAD: This is patent at the proximal and distal anastomosis. The LAD beyond the insertion site has mild diffuse disease without any critical lesions LEFT VENTRICULOGRAPHY: Not performed FINAL IMPRESSION:. Stable coronary artery disease with about 40% ostial stenosis of the left main. Total occlusion of the [place] vessels. Patent vein graft to the diagonal with a stable 70% distal lesion. The LERNER to the LAD is patent PLAN:. Continue maximal medical therapy. The films were reviewed with Dr. Correia and it was felt that intervention is not feasible of the diagonal graft PROGNOSIS: Guarded
[2020-09-19] MEDS ORDERED: LABETALOL SYRINGE 5 MG/ML IVP ONE (10:37)
[2020-09-19 11:41] LABS: Glucose,Whole Blood 136 mg/dL (75-99)
[2020-09-19] MEDS: FUROSEMIDE 20 MG TAB PO SCH (11:51)
--- NOTE | 2020-09-19 11:56 | P.PN ---
Subjective This is a pleasant 75 years old male with past medical history of coronary artery disease status post prior stenting and CABG. She had repeat cardiac cath last year and found to have severe disease involving the left main and proximal left circumflex arteries status post PCI and stent of the left circumflex artery and balloon angioplasty of the left main coronary artery. His guest services associate is Dr. Hloloway. Other medical problems including atrial fibrillation on Eliquis, diabetes mellitus, hypertension, hyperlipidemia. Patient was transfe rred from [facility] where he presented there for having chest pain started this a.m. about 4:00, 3:00 pressure, central, nonradiating 90/10 in severity with no associated shortness of breath or coughing. No dizziness or palpitation. He denies smoking, alcohol or illicit drugs At [facility] his sodium was 137, potassium 4, glucose 152, calcium 9.8, creatinine 0.9, chloride a is not detected, troponin less than 0.03, WBC 8.5K, platelets 150 1K, hemoglobin 16.3. Chest x-ray report is reviewed which mentioned and no consolidation. After his been transferred and he got treated in the emergency room he developed an episode of hypotension, guest services associate placed him on amiodarone drip On admission his troponin is elevated 0.06 EKG showing atrial fibrillation with heart rate of 120 09/19/2020 Patient with no significant change, patie sugar controlled and CBC is unremar kable. nt looks comfortable not in distress. Patient is going for cardiac cath today. And results showing: stable coronary artery disease about 40% ostial stenosis of the left main artery. Total occlusion of the [place] vessels. Patent venous graft to the day condyle with tk 75% distal lesion. Natural Resource Specialist recommended maximum medical therapy. He is hemodynamically stable. His currently on aspirin, amiodarone, Eliquis is on hold and we going to check with guest services associate team went to resume it. Echocardiogram showed ejection fraction 55-60% with moderate left ventricular hypertrophy. CBC is unremarkable. Review of systems CONSTITUTIONAL: No fever, no malaise, no fatigue. HEENT: No recent visual problems or hearing problems. Denied any sore throat. CARDIOVASCULAR: No orthopnea, PND, no palpitations, no syncope. PULMONARY: No shortness of breath, no cough, no hemoptysis. GASTROINTESTINAL: No diarrhea, no nausea, no vomiting, no abdominal pain. Normoactive bowel sounds. Active Medications Generic Name Dose Route Start Last Admin Trade Name Freq PRN Reason Stop Dose Admin Alprazolam 0.25 mg 09/18/20 11:22 Alprazolam 0.25 Mg Tab PO Q6HR PRN Mild Anxiety Alprazolam 0.5 mg 09/18/20 11:22 09/18/20 21:17 Alprazolam 0.5 Mg Tab PO 0.5 mg Q6HR PRN Administration Moderate Anxiety Aspirin 81 mg 09/20/20 09:00 Aspirin 81 Mg PO DAILY [facility] Aspirin 81 mg 09/19/20 09:00 09/19/20 06:35 Aspirin 81 Mg PO Not Given DAILY [facility] Atorvastatin Calcium 80 mg 09/20/20 09:00 Atorvastatin 80 Mg Tab PO DAILY [facility] Famotidine 20 mg 09/18/20 21:00 09/19/20 06:41 Famotidine 20 Mg/2 Ml Vial IV 20 mg Q12HR [facility] Administration Furosemide 20 mg 09/18/20 12:15 09/19/20 11:51 Furosemide 20 Mg Tab PO 20 mg DAILY [facility] Administration Heparin Sodium (Porcine) 0 unit 09/18/20 12:14 Heparin Sodium,Porcine 5,000 Unit/Ml 1 Ml Vial IV PER PROTOCOL PRN Low PTT Protocol Heparin Sodium (Porcine) 10, 1,001 mls @ 999 mls/hr 09/19/20 07:00 000 unit/ Sodium Chloride IRRIGATION 09/19/20 23:00 ONCE PRN INTRA-OP Heparin Sodium (Porcine) 2,500 250.5 mls @ 250 mls/hr 09/19/20 07:00 unit/ Sodium Chloride IRRIGATION 09/19/20 23:00 ONCE PRN INTRA-OP Heparin Sodium/Sodium Chloride 250 mls @ 9.98 mls/hr 09/18/20 12:15 09/18/20 22:11 25,000 unit/ Sodium Chloride IV 11.4 units/kg/hr .Q24H [facility] 9.98 mls/hr Titration Protocol 11.4 UNITS/KG/HR Sodium Chloride 1,000 mls @ 75 mls/hr 09/19/20 10:00 Saline 0.9% IV .[id number] [facility] Insulin Aspart 0 unit 09/18/20 12:30 09/19/20 06:35 Insulin Aspart (Novolog) 100 Unit/Ml Vial SQ Not Given ACHS [facility] Protocol Isosorbide Mononitrate 60 mg 09/18/20 12:15 09/19/20 06:41 Isosorbide Mononitrate Er 60 Mg Tab.Er.24h PO 60 mg DAILY [facility] Administration Losartan Potassium 50 mg 09/18/20 12:15 09/19/20 06:41 Losartan 50 Mg Tab PO 50 mg DAILY [facility] Administration Metoprolol Tartrate 12.5 mg 09/18/20 21:00 09/18/20 21:18 Metoprolol Tartrate 12.5 Mg Tab PO Not Given BID [facility] Miscellaneous Information 1 each 09/19/20 10:00 Rx Info: Iv Contrast Was Given 1 Each Misc MISCELLANE 09/21/20 10:00 DAILY PRN Per Protocol Nitroglycerin 0.4 mg 09/18/20 09:35 09/18/20 12:09 Nitroglycerin Sl Tabs 0.4 Mg Tab SUBLINGUAL 0.4 mg Q5M PRN Administration Chest Pain Nitroglycerin 0.4 mg 09/18/20 11:22 Nitroglycerin Sl Tabs 0.4 Mg Tab SUBLINGUAL Q5M PRN Chest Pain Tamsulosin HCl 0.4 mg 09/19/20 09:00 09/19/20 06:41 Tamsulosin 0.4 Mg Cap.Er.24h PO 0.4 mg DAILY [facility] Administration Trazodone HCl 50 mg 09/18/20 21:00 09/18/20 21:09 Trazodone Hcl 50 Mg Tab PO Not Given [facility] Objective - Vital Signs Vital signs: Vital Signs Temp 98.4 F 09/19/20 07:56 Pulse 50 L 09/19/20 07:56 Resp 17 09/19/20 07:56 BP 154/77 09/19/20 07:56 Pulse Ox 99 09/19/20 07:56 Intake & Output 09/18/20 09/19/20 09/19/20 18:59 06:59 18:59 Intake Total 167 94.311 150 Balance 167 94.311 150 Weight 87.543 kg 88.2 kg Intake: IV 150 Intake, IV Titration 167 94.311 Amount Amiodarone 450 mg In 131 Dextrose 5% in Water 250 ml @ 0.5 MG/MIN 16.667 mls/hr IV .Q15H [facility] Rx#: [id number] Heparin Sod,Pork in 0.45% 36 94.311 NaCl 25,000 unit In 0.45 % NaCl 1 250ml.bag @ 11.4 UNITS/KG/HR 9.98 mls/hr IV .Q24H [facility] Rx#: [id number] Other: Voiding Method Toilet Toilet Toilet # Voids 1 - Exam GENERAL: The patient is alert and oriented x3, not in any acute distress. Well developed, well nourished. HEENT: Pupils are round and equally reacting to light. EOMI. No scleral icterus. No conjunctival pallor. Normocephalic, atraumatic. No pharyngeal erythema. No thyromegaly. CARDIOVASCULAR: S1 and S2 present. No murmurs, rubs, or gallops. PULMONARY: Chest is clear to auscultation, no wheezing or crackles. ABDOMEN: Soft, nontender, nondistended, normoactive bowel sounds. No palpable organomegaly. MUSCULOSKELETAL: No joint swelling or deformity. EXTREMITIES: No cyanosis, clubbing, or pedal edema. NEUROLOGICAL: Gross neurological examination did not reveal any focal deficits. SKIN: No rashes. no petechiae. - Labs CBC & Chem 7: 09/19/20 08:15 09/18/20 09:13 Labs: Abnormal Lab Results - Last 24 Hours (Table) 09/18/20 09/18/20 09/18/20 Range/Units 09:13 12:08 15:09 Plt Count (150-450) k/uL APTT (22.0-30.0) sec Glucose 148 H (74-99) mg/dL POC Glucose (mg/dL) (75-99) mg/dL Troponin I 0.139 H* 0.232 H* (0.000-0.034) ng/mL HDL Cholesterol (40-60) mg/dL 09/18/20 09/18/20 09/18/20 Range/Units 16:37 20:41 20:54 Plt Count (150-450) k/uL APTT 47.8 H (22.0-30.0) sec Glucose (74-99) mg/dL POC Glucose (mg/dL) 144 H 178 H (75-99) mg/dL Troponin I (0.000-0.034) ng/mL HDL Cholesterol (40-60) mg/dL 09/19/20 09/19/20 09/19/20 Range/Units 05:56 08:15 08:15 Plt Count 115 L (150-450) k/uL APTT (22.0-30.0) sec Glucose (74-99) mg/dL POC Glucose (mg/dL) 119 H (75-99) mg/dL Troponin I (0.000-0.034) ng/mL HDL Cholesterol 38 L (40-60) mg/dL 09/19/20 Range/Units 11:39 Plt Count (150-450) k/uL APTT (22.0-30.0) sec Glucose (74-99) mg/dL POC Glucose (mg/dL) 136 H (75-99) mg/dL Troponin I (0.000-0.034) ng/mL HDL Cholesterol (40-60) mg/dL Assessment and Plan Assessment: None STEMI, and in view of his history of coronary artery disease status post CABG, stenting of the left circumflex artery. Cardiac cath showing multiple stenoses of the coronary arteries Chronic A. fib with RVR, was on Eliquis 2 diabetes mellitus Hypertension Hyperlipidemia Plan: This is a pleasant 75 years old male who presents with unstable angina and A. fib with RVR, he is already on Eliquis anticoagulation, which is held, going to discuss with cardiology when to resume it. Continue with aspirin and amiodarone. Will follow-up recommendation by guest services associate team Labs and medication were reviewed.. Continue same treatment. Continue with symptomatic treatment. Resume home medication. Monitor lytes and vitals. DVT and GI prophylaxis. Further recommendations depends on the clinical course of the patient DVT prophylaxis: heparin or Eliquis GI Prophylaxis: Pepcid PT/OT: Pending Prognosis is guarded
[2020-09-19] MEDS: METOPROLOL TARTRATE 12.5 MG TAB PO SCH ×2 (12:41→20:42)
[2020-09-19 16:56] LABS: Glucose,Whole Blood 211 mg/dL (75-99)
[2020-09-19] MEDS: HEPARIN SOD,PORK IN 0.45% NACL 25,000 UNIT in 0.45% NACL 1 250ML.BAG IV SCH (17:13)
[2020-09-19] MEDS: SODIUM CHLORIDE 0.9% 1,000 ML IV SCH ×2 (17:31→20:49)
[2020-09-19 20:40] LABS: Glucose,Whole Blood 132 mg/dL (75-99)
[2020-09-19] MEDS: traZODone HCL 50 MG TAB PO SCH (20:43)
[2020-09-19] MEDS: HEPARIN SODIUM,PORCINE 5,000 UNIT/ML 1 ML VIAL SQ SCH (21:23)
[2020-09-20 00:17] VITALS: RESP 16
[2020-09-20 06:22] LABS: Glucose,Whole Blood 138 mg/dL (75-99)
[2020-09-20] MEDS: INSULIN ASPART (NovoLOG) 100 UNIT/ML VIAL SQ SCH (06:49)
[2020-09-20 08:06] LABS: Basophils % (A) 0 %; Eosinophils # (A) 0.1 k/uL (0-0.7); Eosinophils % (A) 2 %; HCT 40.7 % (39.0-53.0); HGB 13.5 gm/dL (13.0-17.5); Lymphocytes # (A) 0.9 k/uL (1.0-4.8); Lymphocytes % (A) 14 %; MCH 29.8 pg (25.0-35.0); MCHC 33.1 g/dL (31.0-37.0); MCV 90.2 fL (80.0-100.0); Mean Platelet Volume 7.9; Monocytes # (A) 0.3 k/uL (0-1.0); Monocytes % (A) 5 %; Neutrophils # (A) 4.9 k/uL (1.3-7.7); Neutrophils % (A) 78 %; Platelet Count 118 k/uL (150-450); RBC 4.51 m/uL (4.30-5.90); RDW 13.8 % (11.5-15.5); WBC 6.3 k/uL (3.8-10.6)
[2020-09-20 08:26] LABS: African American GFR (CKD) >90 (>60 ml/min/1.73 sqM); Anion Gap 6 mmol/L; Blood Urea Nitrogen 13 mg/dL (9-20); Calcium 8.7 mg/dL (8.4-10.2); Carbon Dioxide 28 mmol/L (22-30); Chloride 104 mmol/L (98-107); Glucose 133 mg/dL (74-99); Non-African American GFR(CKD) 79 (>60 ml/min/1.73 sqM); Potassium 4.3 mmol/L (3.5-5.1); Sodium 138 mmol/L (137-145)
[2020-09-20] MEDS: HEPARIN SODIUM,PORCINE 5,000 UNIT/ML 1 ML VIAL SQ SCH (08:49)
[2020-09-20] MEDS: METOPROLOL TARTRATE 12.5 MG TAB PO SCH (08:50)
[2020-09-20] MEDS: FUROSEMIDE 20 MG TAB PO SCH (08:50)
[2020-09-20] MEDS: LOSARTAN 50 MG TAB PO SCH (08:50)
[2020-09-20] MEDS: TAMSULOSIN 0.4 MG CAP.ER.24H PO SCH (08:50)
[2020-09-20] MEDS: FAMOTIDINE 20 MG/2 ML VIAL IV SCH (08:51)
[2020-09-20] MEDS: ISOSORBIDE MONONITRATE ER 60 MG TAB.ER.24H PO SCH (08:51)
[2020-09-20 08:58] VITALS: BP 177/82; PULSE 63; TEMP 98
[2020-09-20] MEDS ORDERED: ASPIRIN 81 MG PO SCH (09:00)
[2020-09-20] MEDS ORDERED: ATORVASTATIN 80 MG TAB PO SCH (09:00)
[2020-09-20] MEDS ORDERED: APIXABAN 5 MG TAB PO SCH (10:15)
[2020-09-20] MEDS ORDERED: AMIODARONE 200 MG TAB PO SCH (10:17)
--- NOTE | 2020-09-20 13:48 | P.PN ---
Subjective Progress Note Date: 09/20/20 HISTORY OF PRESENT ILLNESS: Patient is status post cardiac cath revealing stable coronary artery disease with 40% ostial stenosis of left main. Total occlusion of [place] vessels. Patent vein graft to the diagonal with a stable 70% distal lesion. LERNER to LAD is patent. Patient is currently maintaining sinus rhythm. Vital signs are stable. [facility] PHYSICAL EXAM: VITAL SIGNS: Reviewed. GENERAL: Well-developed in no acute distress. NECK: Supple. No JVD or thyromegaly LUNGS: Respirations even and unlabored. Lungs essentially clear to auscultation bilaterally. HEART: Regular rate and rhythm. S1 and S2 heard. EXTREMITIES: Normal range of motion. No clubbing or cyanosis. Peripheral pulses intact. No lower extremity edema. Right groin with ecchymosis present. No hematoma noted. Pulses present. ASSESSMENT: Unstable angina Non-ST elevated myocardial infarction Ischemic cardiomyopathy Coronary artery disease with previous CABG and stent placement History of aortic valve replacement with bovine valve Hypertension Hyperlipidemia Diabetes mellitus PLAN: Continue current cardiac medications Patient is stable for discharge home today from a cardiac perspective. He is to follow up outpatient with Dr. Holloway Nurse practitioner note has been reviewed by physician. Signing provider agrees with the documented findings, assessment, and plan of care. Objective - Vital Signs Vital signs: Vital Signs Temp 98 F 09/20/20 08:00 Pulse 63 09/20/20 08:00 Resp 16 09/20/20 08:00 BP 177/82 09/20/20 08:00 Pulse Ox 94 L 09/20/20 08:00 Intake & Output 09/19/20 09/20/20 09/20/20 18:59 06:59 18:59 Intake Total 622 Output Total 700 300 Balance -78 -300 Intake: IV 150 Oral 472 Output: Urine 700 300 Other: Voiding Method Toilet Toilet Toilet # Voids 1 1 1 - Labs CBC & Chem 7: 09/20/20 07:26 09/20/20 07:26 Labs: Abnormal Lab Results - Last 24 Hours (Table) 09/19/20 09/19/20 09/20/20 Range/Units 16:55 20:37 06:20 Plt Count (150-450) k/uL Lymphocytes # (1.0-4.8) k/uL Glucose (74-99) mg/dL POC Glucose (mg/dL) 211 H 132 H 138 H (75-99) mg/dL 09/20/20 09/20/20 Range/Units 07:26 07:26 Plt Count 118 L (150-450) k/uL Lymphocytes # 0.9 L (1.0-4.8) k/uL Glucose 133 H (74-99) mg/dL POC Glucose (mg/dL) (75-99) mg/dL
--- NOTE | 2020-09-20 23:28 | P.DS ---
Providers Date of admission: 09/19/20 11:20 Attending physician: Vish Bolanos MD Consults: 09/18/20 09:06 Consult Physician Routine Consulting Provider: Negrito Holloway Consult Reason/Comments: chest pain Do you want consulting provider notified?: Already Contacted Primary care physician: Calin Meneses MD Hospital Course: Diagnoses: None STEMI, and in view of his history of coronary artery disease status post CABG, stenting of the left circumflex artery. Cardiac cath showing multiple stenoses of the coronary arteries Chronic A. fib with RVR, was on Eliquis 2 diabetes mellitus Hypertension Hyperlipidemia Hospital course: This is a pleasant 75 years old male with past medical history of coronary artery disease status post prior stenting and CABG. She had repeat cardiac cath last year and found to have severe disease involving the left main and proximal left circumflex arteries status post PCI and stent of the left circumflex artery and balloon angioplasty of the left main coronary artery. His disability benefits specialist is Dr. Holloway. Patient was transferred from [facility] where he presented there for having chest pain started early in the morning.On admission his troponin is elevated 0.06, EKG showing atrial fibrillation with heart rate of 120. Patient has been evaluated by disability benefits specialist, amiodarone is added dose metoprolol and his heart rate controlled. Patient underwent cardiac cath:showed stable coronary artery disease with about 40% stenosis of the left main coronary artery. Total occlusion of [place] vessels. Patent vein graft to the diagonal branch with a stable 70% distal lesion. The LERNER to the LAD is patent. Eventually disability benefits specialist recommended medical management with no need for stent placement Patient monitored for another 24 hours and remained chest pain-free, no dyspnea or other symptoms. No change in urine or bowel habits. No fever. Patient was referred to go home today Patient was cleared for discharge by disability benefits specialist Problems and management plan were discussed with the patient and he verbalized understanding and acceptance Patient was found stable and can be discharged home however he needs follow-up as an outpatient. Patient was instructed to follow up with PCP Dr. Meneses within one week and patient agrees. Patient was instructed to follow up with Dr. Holloway in 1-2 weeks and he agrees with the appointments made for him on 09/25 Gen: patient is a AAOx3, no distress CVS: S1-S2, RRR, no murmur Lungs: B/L CTA, no wheezing Abdomen: soft, no distention, no tenderness, positive bowel sounds Extremity: no leg edema or induration Time spent more than 35 minutes Patient Condition at Discharge: Fair Plan - Discharge Summary Discharge Rx Participant: Yes New Discharge Prescriptions: New Amiodarone [Cordarone] 400 mg PO BID #120 tab Metoprolol Tartrate [Lopressor] 12.5 mg PO BID #60 tab Continue Isosorbide Mononitrate ER [Imdur] 60 mg PO DAILY Furosemide [Lasix] 20 mg PO DAILY Atorvastatin [Lipitor] 80 mg PO DAILY Losartan [Cozaar] 50 mg PO DAILY Aspirin EC [Ecotrin Low Dose] 81 mg PO DAILY Multivit-Min/FA/Lycopen/Lutein [Centrum Silver Tablet] 1 tab PO DAILY metFORMIN HCL 1,000 mg PO BID Nitroglycerin Sl Tabs [Nitrostat] 0.4 mg SL Q5M PRN PRN Reason: Chest Pain Aspirin 324 mg PO ONCE PRN PRN Reason: Chest Pain traZODone HCL 50 mg PO HS Tamsulosin [Flomax] 0.4 mg PO DAILY Apixaban [Eliquis] 5 mg PO BID Discontinued Metoprolol Tartrate [Lopressor] 25 mg PO BID Discharge Medication List Aspirin EC [Ecotrin Low Dose] 81 mg PO DAILY 06/15/19 [History] Atorvastatin [Lipitor] 80 mg PO DAILY 06/15/19 [History] Furosemide [Lasix] 20 mg PO DAILY 06/15/19 [History] Isosorbide Mononitrate ER [Imdur] 60 mg PO DAILY 06/15/19 [History] Losartan [Cozaar] 50 mg PO DAILY 06/15/19 [History] Multivit-Min/FA/Lycopen/Lutein [Centrum Silver Tablet] 1 tab PO DAILY 06/15/19 [History] metFORMIN HCL 1,000 mg PO BID 06/22/19 [History] Apixaban [Eliquis] 5 mg PO BID 09/18/20 [History] Aspirin 324 mg PO ONCE PRN 09/18/20 [History] Nitroglycerin Sl Tabs [Nitrostat] 0.4 mg SL Q5M PRN 09/18/20 [History] Tamsulosin [Flomax] 0.4 mg PO DAILY 09/18/20 [History] traZODone HCL 50 mg PO HS 09/18/20 [History] Amiodarone [Cordarone] 400 mg PO BID #120 tab 09/20/20 [Rx] Metoprolol Tartrate [Lopressor] 12.5 mg PO BID #60 tab 09/20/20 [Rx] Follow up Appointment(s)/Referral(s): Calin Meneses MD [Primary Care Provider] - 1-2 days (Spoke to target worker. Office will call you with appointment time) Negrito Holloway MD [STAFF PHYSICIAN] - 09/25/20 3:00 pm (Thursday Previously scheduled appointment. Device check and appointment with doctor) Patient Instructions/Handouts: *Surgery [facility] - After Heart Catheterization - Environmental Professional Instructions Activity/Diet/Wound Care/Special Instructions: Heart healthy diet Activity is restricted until you see your doctor Discharge Disposition: HOME SELF-CARE
== END 2020-09-20 11:37 | disposition home or self-care (01) | DRG 281 ==
LOC: EC 08:59 → 3SCARD 09:35 → OBSVTOIN 09-19 11:20
PROVIDERS: ADMIT Internal Medicine; ATTEND Internal Medicine
PROC: B2181ZZ Fluoroscopy of Left Internal Mammary Bypass Graft using Low Osmolar Contrast (ICD-10-PCS; principal; 2020-09-19 09:00)
PROC: 4A023N7 Measurement of Cardiac Sampling and Pressure, Left Heart, Percutaneous Approach (ICD-10-PCS; principal; 2020-09-19 09:00)
PROC: B2131ZZ Fluoroscopy of Multiple Coronary Artery Bypass Grafts using Low Osmolar Contrast (ICD-10-PCS; principal; 2020-09-19 09:00)
PROC: B2111ZZ Fluoroscopy of Multiple Coronary Arteries using Low Osmolar Contrast (ICD-10-PCS; principal; 2020-09-19 09:00)
DX: I21.4 Non-ST elevation (NSTEMI) myocardial infarction (principal); I48.20 Chronic atrial fibrillation, unspecified; I25.110 Atherosclerotic heart disease of native coronary artery with unstable angina pectoris; I11.9 Hypertensive heart disease without heart failure; E11.9 Type 2 diabetes mellitus without complications; I45.10 Unspecified right bundle-branch block; I25.5 Ischemic cardiomyopathy; E78.5 Hyperlipidemia, unspecified; G47.30 Sleep apnea, unspecified; E78.00 Pure hypercholesterolemia, unspecified; I25.2 Old myocardial infarction; Z86.74 Personal history of sudden cardiac arrest; Z95.1 Presence of aortocoronary bypass graft; Z79.01 Long term (current) use of anticoagulants; Z79.82 Long term (current) use of aspirin; Z79.84 Long term (current) use of oral hypoglycemic drugs; Z79.899 Other long term (current) drug therapy; Z95.810 Presence of automatic (implantable) cardiac defibrillator; Z87.891 Personal history of nicotine dependence; Z95.5 Presence of coronary angioplasty implant and graft; Z90.89 Acquired absence of other organs; Z87.19 Personal history of other diseases of the digestive system; Z90.49 Acquired absence of other specified parts of digestive tract; Z95.3 Presence of xenogenic heart valve; Z92.3 Personal history of irradiation; Z98.890 Other specified postprocedural states; Z82.49 Family history of ischemic heart disease and other diseases of the circulatory system; Z80.52 Family history of malignant neoplasm of bladder; Z84.1 Family history of disorders of kidney and ureter; Z80.42 Family history of malignant neoplasm of prostate
CPT/HCPCS: 36415; 80048; 80061; 84484; 85025; 85610; 85730; 93005; 93306; 93455; 96365; 96366; 96376; 99285

== ENCOUNTER 2023-01-23 12:31 | Emergency (ER) | payer MEDICARE ==
[2023-01-23] MEDS ORDERED: SODIUM CHLORIDE 0.9% 500 ML 500 ML IV ONE (13:31)
--- NOTE | 2023-01-23 13:40 | ED ---
General Adult HPI - General Chief complaint: Chest Pain Stated complaint: Chest Pain/Sob Time Seen by Provider: 01/23/23 13:20 Source: patient, RN notes reviewed, old records reviewed Mode of arrival: wheelchair Limitations: altered mental status - History of Present Illness Initial comments: Diamond is a 77-year-old male with past medical history remarkable for atrial fibrillation, diabetes, hypertension, cardiac bypass, with a pacemaker presents emergency Department for further evaluation. Patient was seen last night in [facility] after taking a nitroglycerin tablets at home to relieve some pressure like sensation in his chest as well as abdominal discomfort. States he received 2 blood tests, EKG, workup at [facility], and he was offered transfer to [facility] for observation which he declined. He was discharged home, and states that he did not sleep well overnight. Apparently he does not recall that he got in the car and drove somewhere and returned home. Patient's and patient states this is never happened before. Patient is confused regarding this incident but does not believe he injured him self. He currently has no acute complaints. Presents over concern for that altered mental status episode overnight as well as the chest pain he had last night. States the workup yesterday was unremarkable. Denies any current chest pain, shortness breath, abdominal pain, nausea, vomiting, diarrhea, fevers, chills, sick contacts. Denies any headache, weakness, numbness. Presents for further evaluation at this time.Patient is on blood thinners, and denies any known head trauma. - Related Data Home Medications Medication Instructions Recorded Confirmed Aspirin EC [Ecotrin Low Dose] 81 mg PO DAILY 06/15/19 01/23/23 Furosemide [Lasix] 20 mg PO DAILY 06/15/19 01/23/23 Isosorbide Mononitrate ER [Imdur] 60 mg PO DAILY 06/15/19 01/23/23 metFORMIN HCL [Glucophage] 1,000 mg PO BID 06/22/19 01/23/23 Apixaban [Eliquis] 5 mg PO BID 09/18/20 01/23/23 Nitroglycerin Sl Tabs [Nitrostat] 0.4 mg SL Q5M PRN 09/18/20 01/23/23 Tamsulosin [Flomax] 0.4 mg PO DAILY 09/18/20 01/23/23 Atorvastatin [Lipitor] 80 mg PO DAILY 01/23/23 01/23/23 Cyclobenzaprine [Flexeril] 5 mg PO TID PRN 01/23/23 01/23/23 Losartan [Cozaar] 25 mg PO DAILY 01/23/23 01/23/23 Metoprolol Tartrate [Lopressor] 25 mg PO BID 01/23/23 01/23/23 clonazePAM [Klonopin] 1 mg PO HS PRN 01/23/23 01/23/23 Allergies Allergy/AdvReac Type Severity Reaction Status Date / Time No Known Allergies Allergy Verified 01/23/23 18:01 Review of Systems ROS Statement: Those systems with pertinent positive or pertinent negative responses have been documented in the HPI. Review of Systems: CONST: Denies fever EYES: Denies blurry vision ENT: Denies nasal congestion C/V: Denies Chest pain RESP: Denies shortness of breath GI: Denies abdominal pain : Denies dysuria SKIN: Denies rash. MSK: Denies joint pain. NEURO: Denies headache ROS Other: All systems not noted in ROS Statement are negative. Past Medical History Past Medical History: Atrial Fibrillation, Chest Pain / Angina, Diabetes Mellitus, Hyperlipidemia, Hypertension, Myocardial Infarction ([place]), Sleep Apnea/CPAP/BIPAP Last Myocardial Infarction Date:: 1993 History of Any Multi-Drug Resistant Organisms: None Reported Past Surgical History: Appendectomy, Coronary Bypass/CABG, Heart Cathet erization, Heart Catheterization With Stent, Tonsillectomy Additional Past Surgical History / Comment(s): stenting and angioplasty left lower extremity and heart cath 06-20-19,CABG x2, aortic valve replaced,brachytherapy,. 06/22/2019- heart cath stent x1 L Circ, and ballon to L main Past Anesthesia/Blood Transfusion Reactions: No Reported Reaction Date of Last Stent Placement:: 2018 Past Psychological History: No Psychological Hx Reported Smoking Status: Former smoker Past Alcohol Use History: Rare Past Drug Use History: None Reported - Past Family History Mother Family Medical History: No Reported History Additional Family Medical History / Comment(s): Heart disease at 64 Father Family Medical History: Prostate Disorder Additional Family Medical History / Comment(s): of Uremic poisioning, had heart disease. Bladder or prostate CA, General Exam - General Exam Comments Initial Comments: General: Appears in no acute distress. HEAD: Normal with no signs of head trauma. EYES: PERRLA, EOMI, conjunctiva normal, no discharge. Pupils 3 mm and equal bilaterally. ENT: Hearing grossly intact, normal oropharynx. RESPIRATORY: Clear breath sounds bilaterally. No wheezes, rales, or rhonchi. C/V: Iregular rate and rhythm. S1 and S2 auscultated, no edema, peripheral pulses 2+ and intact throughout ABD: Abd is soft, nontender, nondistended EXT: Normal range of motion, no obvious deformity SKIN: Old scars of the chest and abdomen from prior surgeries. NEURO: Alert and oriented x 4. Cranial nerves II-XII intact. No focal sensory or strength deficits. GCS of 15. NIH is 0. Limitations: altered mental status Course Vital Signs 01/23/23 01/23/23 01/23/23 12:36 13:37 13:45 Temperature 98.8 F Pulse Rate 61 61 59 L Respiratory 20 17 14 Rate Blood Pressure 121/60 159/70 O2 Sat by Pulse 96 Oximetry 01/23/23 01/23/23 01/23/23 14:00 14:30 15:00 Temperature Pulse Rate 62 63 63 Respiratory 15 11 L 9 L Rate Blood Pressure 159/70 159/72 154/68 O2 Sat by Pulse Oximetry 01/23/23 15:30 Temperature Pulse Rate 63 Respiratory 17 Rate Blood Pressure 143/60 O2 Sat by Pulse Oximetry Medical Decision Making - Medical Decision Making Was pt. sent in by a medical professional or institution (, PA, CENTER MANAGER, urgent care, hospital, or [facility]...) When possible be specific @ -No Did you speak to anyone other than the patient for history (EMS, parent, family, police, friend...)? What history was obtained from this source @ -No Did you review nursing and triage notes (agree or disagree)? Why? @ -I reviewed and agree with nursing and triage notes Were old charts reviewed (outside hosp., previous admission, EMS record, old EKG, old radiological studies, urgent care reports/EKG's, [facility] records)? Report findings @ -Old charts including EKG reviewed from August 2020 Differential Diagnosis (chest pain, altered mental status, abdominal pain women, abdominal pain men, vaginal bleeding, weakness, fever, dyspnea, syncope, headache, dizziness, GI bleed, back pain, seizure, CVA, palpatations, mental health, musculoskeletal)? @ -Differential Altered Mental Status: Hypoglycemia, DKA, hypercapnia, ETOH, overdose, CO poisoning, trauma, myxedema coma, HTN encephalopathy, infection, encephalitis, psychosis, intercranial hemorrhage, hepatic encephalopathy, meningitis, CVA, this is not meant to be an all-inclusive list EKG interpreted by me (3pts min.). @ -As above X-rays interpreted by me (1pt min.). @ -Patient's chest x-ray shows no obvious acute cardio process. CT interpreted by me (1pt min.). @ -CT brain shows no acute intracranial process.CT abdomen and pelvis shows no obvious acute abdominal process. This is corroborated wih read [facility] radiology. Mild right pleural effusion. U/S interpreted by me (1pt. min.). @ -Gallbladder ultrasound reveals wall thickening up to 8 mm with no gallstones. Positive sonographic Saunders sign. Recommend HIDA scan. hypoechoic appearance the liver concerning for possible hepatitis. What testing was considered but not performed or refused? (CT, X-rays, U/S, labs)? Why? @ -None What meds were considered but not given or refused? Why? @ -None Did you discuss the management of the patient with other professionals (professionals i.e. , PA, CENTER MANAGER, lab, RT, psych nurse, social media campaign manager, flow floor attendant, teacher, lead security officer, case resource manager)? Give summary @ -Discussed with Dr. medina the accepting physician at [facility] who accepted the patient. Was smoking cessation discussed for >3mins.? @ -No Was critical care preformed (if so, how long)? @ -yes, 35 min Were there social determinants of health that impacted care today? How? (Homelessness, low income, unemployed, alcoholism, drug addiction, transportation, low edu. Level, literacy, decrease access to med. care, halfway, rehab)? @ -No Was there de-escalation of care discussed even if they declined (Discuss DNR or withdrawal of care, Hospice)? DNR status @ -No What co-morbidities impacted this encounter? (DM, HTN, Smoking, COPD, CAD, Cancer, CVA, ARF, Chemo, Hep., AIDS, mental health diagnosis, sleep apnea, morbid obesity)? @ -Significant cardiac history Was patient admitted / discharged? Hospital course, mention meds given and route, prescriptions, significant lab abnormalities, going to OR and other pertinent info. @ -Based on the patient's presentation and physical exam, I'm concerned for his altered mental status episode last night as well as his chest pain last night. Denies having any recurrent episodes. We will obtain an ultrasound mental status workup as well as cardiac workup. He is asymptomatic at this time. Vital signs within acceptable limits. He was in agreement this plan. EKG shows no signs of acute ischemia or acute changes.Imaging remarkable for findings concerning for possible cholecystitis with positive sonographic Saunders's and gallbladder wall thickening with no obvious stone present. Remainder the imaging is unremarkable. EKG shows no acute ischemic process. Labs are remarkable for leukocytosis of 15, a lactic acidosis of 2.7, elevated LFTs as well as elevated alk phos, indeterminate troponin. Remainder labs are within acceptable limits. Amylase and lipase normal. Conjugated bilirubin unconjugated bilirubin was elevated. Patient's imaging and labs to take some time due to ED volumes. Patient will be transferred for GI evaluation and possible ERCP and further evaluation for his concern for liver versus gallbladder pathology. Patient was empirically dosed with Zosyn and vancomycin and blood cultures sent. He did receive 2 L bolus IV fluids and placed on maintenance fluids. Patient was in agreement this plan. He'll be transferred to [facility]. Accepting physician is Dr. Palencia. Patient transferred in serious condition. Undiagnosed new problem with uncertain prognosis? @ -No Drug Therapy requiring intensive monitoring for toxicity (Heparin, Nitro, Insulin, Cardizem)? @ -No Were any procedures done? @ -No Diagnosis/symptom? @ -Concern for hepatobiliary pathology, possible choledocholithiasis versus hepatitis. Acute, or Chronic, or Acute on Chronic? @ -Acute Uncomplicated (without systemic symptoms) or Complicated (systemic symptoms)? @ -Complicated Side effects of treatment? @ -none Exacerbation, Progression, or Severe Exacerbation] @ -no Poses a threat to life or bodily function? @ -yes - Lab Data Result diagrams: 01/23/23 13:43 01/23/23 13:43 Lab Results 01/23/23 01/23/23 01/23/23 Range/Units 13:00 13:43 13:43 WBC 15.2 H (3.8-10.6) k/uL RBC 4.62 (4.30-5.90) m/uL Hgb 13.3 (13.0-17.5) gm/dL Hct 40.9 (39.0-53.0) % MCV 88.5 (80.0-100.0) fL MCH 28.9 (25.0-35.0) pg MCHC 32.6 (31.0-37.0) g/dL RDW 15.0 (11.5-15.5) % Plt Count 144 L (150-450) k/uL MPV 8.6 Neutrophils % 93 % Lymphocytes % 3 % Monocytes % 4 % Eosinophils % 1 % Basophils % 0 % Neutrophils # 14.1 H (1.3-7.7) k/uL Lymphocytes # 0.4 L (1.0-4.8) k/uL Monocytes # 0.6 (0-1.0) k/uL Eosinophils # 0.1 (0-0.7) k/uL Basophils # 0.0 (0-0.2) k/uL PT 12.6 H (9.0-12.0) sec INR 1.2 H (<1.2) APTT 27.2 (22.0-30.0) sec Sodium (137-145) mmol/L Potassium (3.5-5.1) mmol/L Chloride (98-107) mmol/L Carbon Dioxide (22-30) mmol/L Anion Gap mmol/L BUN (9-20) mg/dL Creatinine (0.66-1.25) mg/dL Est GFR (CKD-EPI)AfAm (>60 ml/min/1.73 sqM) Est GFR (CKD-EPI)NonAf (>60 ml/min/1.73 sqM) Glucose (74-99) mg/dL POC Glucose (mg/dL) (70-110) mg/dL POC Glu Toy Mechanic ID Lactic Ac Sepsis Rflx Plasma Lactic Acid Sam (0.7-2.0) mmol/L Calcium (8.4-10.2) mg/dL Total Bilirubin 5.9 H (0.2-1.3) mg/dL Conjugated Bilirubin 2.5 H (0.0-0.3) mg/dL Unconjugated Bilirubin 2.2 H (0.0-1.1) mg/dL Delta Bilirubin 1.2 H (0.0-0.2) mg/dL AST (17-59) U/L ALT (4-49) U/L Alkaline Phosphatase (38-126) U/L Ammonia (<30) umol/L Troponin I (0.000-0.034) ng/mL Total Protein (6.3-8.2) g/dL Albumin (3.5-5.0) g/dL Amylase 48 (30-110) U/L Lipase 48 (23-300) U/L Urine Color Urine Appearance (Clear) Urine pH (5.0-8.0) Ur Specific [place] (1.001-1.035) Urine Protein (Negative) Urine Glucose (UA) (Negative) Urine Ketones (Negative) Urine Blood (Negative) Urine Nitrite (Negative) Urine Bilirubin (Negative) Urine Urobilinogen (<2.0) mg/dL Ur Leukocyte Esterase (Negative) Urine RBC (0-5) /hpf Urine WBC (0-5) /hpf Ur Squamous Epith Cells (0-4) /hpf Urine Mucus (None) /hpf Urine Opiates Screen (NotDetected) Ur Oxycodone Screen (NotDetected) Urine Methadone Screen (NotDetected) Ur Propoxyphene Screen (NotDetected) Ur Barbiturates Screen (NotDetected) U Tricyclic Antidepress (NotDetected) Ur Phencyclidine Scrn (NotDetected) Ur Amphetamines Screen (NotDetected) U Methamphetamines Scrn (NotDetected) U Benzodiazepines Scrn (NotDetected) Urine Cocaine Screen (NotDetected) U Marijuana (THC) Screen (NotDetected) Serum Alcohol mg/dL 01/23/23 01/23/23 01/23/23 Range/Units 13:43 13:43 13:43 WBC (3.8-10.6) k/uL RBC (4.30-5.90) m/uL Hgb (13.0-17.5) gm/dL Hct (39.0-53.0) % MCV (80.0-100.0) fL MCH (25.0-35.0) pg MCHC (31.0-37.0) g/dL RDW (11.5-15.5) % Plt Count (150-450) k/uL MPV Neutrophils % % Lymphocytes % % Monocytes % % Eosinophils % % Basophils % % Neutrophils # (1.3-7.7) k/uL Lymphocytes # (1.0-4.8) k/uL Monocytes # (0-1.0) k/uL Eosinophils # (0-0.7) k/uL Basophils # (0-0.2) k/uL PT (9.0-12.0) sec INR (<1.2) APTT (22.0-30.0) sec Sodium 138 (137-145) mmol/L Potassium 4.4 (3.5-5.1) mmol/L Chloride 97 L (98-107) mmol/L Carbon Dioxide 27 (22-30) mmol/L Anion Gap 14 mmol/L BUN 22 H (9-20) mg/dL Creatinine 1.23 (0.66-1.25) mg/dL Est GFR (CKD-EPI)AfAm 65 (>60 ml/min/1.73 sqM) Est GFR (CKD-EPI)NonAf 56 (>60 ml/min/1.73 sqM) Glucose 145 H (74-99) mg/dL POC Glucose (mg/dL) (70-110) mg/dL POC Glu Toy Mechanic ID Lactic Ac Sepsis Rflx Plasma Lactic Acid Sam (0.7-2.0) mmol/L Calcium 9.2 (8.4-10.2) mg/dL Total Bilirubin 6.3 H (0.2-1.3) mg/dL Conjugated Bilirubin (0.0-0.3) mg/dL Unconjugated Bilirubin (0.0-1.1) mg/dL Delta Bilirubin (0.0-0.2) mg/dL AST 592 H (17-59) U/L ALT 539 H (4-49) U/L Alkaline Phosphatase 292 H (38-126) U/L Ammonia <9 (<30) umol/L Troponin I 0.028 (0.000-0.034) ng/mL Total Protein 7.2 (6.3-8.2) g/dL Albumin 4.1 (3.5-5.0) g/dL Amylase (30-110) U/L Lipase (23-300) U/L Urine Color Urine Appearance (Clear) Urine pH (5.0-8.0) Ur Specific [place] (1.001-1.035) Urine Protein (Negative) Urine Glucose (UA) (Negative) Urine Ketones (Negative) Urine Blood (Negative) Urine Nitrite (Negative) Urine Bilirubin (Negative) Urine Urobilinogen (<2.0) mg/dL Ur Leukocyte Esterase (Negative) Urine RBC (0-5) /hpf Urine WBC (0-5) /hpf Ur Squamous Epith Cells (0-4) /hpf Urine Mucus (None) /hpf Urine Opiates Screen (NotDetected) Ur Oxycodone Screen (NotDetected) Urine Methadone Screen (NotDetected) Ur Propoxyphene Screen (NotDetected) Ur Barbiturates Screen (NotDetected) U Tricyclic Antidepress (NotDetected) Ur Phencyclidine Scrn (NotDetected) Ur Amphetamines Screen (NotDetected) U Methamphetamines Scrn (NotDetected) U Benzodiazepines Scrn (NotDetected) Urine Cocaine Screen (NotDetected) U Marijuana (THC) Screen (NotDetected) Serum Alcohol <10 mg/dL 01/23/23 01/23/23 01/23/23 Range/Units 13:46 14:28 15:07 WBC (3.8-10.6) k/uL RBC (4.30-5.90) m/uL Hgb (13.0-17.5) gm/dL Hct (39.0-53.0) % MCV (80.0-100.0) fL MCH (25.0-35.0) pg MCHC (31.0-37.0) g/dL RDW (11.5-15.5) % Plt Count (150-450) k/uL MPV Neutrophils % % Lymphocytes % % Monocytes % % Eosinophils % % Basophils % % Neutrophils # (1.3-7.7) k/uL Lymphocytes # (1.0-4.8) k/uL Monocytes # (0-1.0) k/uL Eosinophils # (0-0.7) k/uL Basophils # (0-0.2) k/uL PT (9.0-12.0) sec INR (<1.2) APTT (22.0-30.0) sec Sodium (137-145) mmol/L Potassium (3.5-5.1) mmol/L Chloride (98-107) mmol/L Carbon Dioxide (22-30) mmol/L Anion Gap mmol/L BUN (9-20) mg/dL Creatinine (0.66-1.25) mg/dL Est GFR (CKD-EPI)AfAm (>60 ml/min/1.73 sqM) Est GFR (CKD-EPI)NonAf (>60 ml/min/1.73 sqM) Glucose (74-99) mg/dL POC Glucose (mg/dL) 137 H (70-110) mg/dL POC Glu Toy Mechanic ID Kylie Pfeiffer Lactic Ac Sepsis Rflx Plasma Lactic Acid Sam 2.7 H* (0.7-2.0) mmol/L Calcium (8.4-10.2) mg/dL Total Bilirubin (0.2-1.3) mg/dL Conjugated Bilirubin (0.0-0.3) mg/dL Unconjugated Bilirubin (0.0-1.1) mg/dL Delta Bilirubin (0.0-0.2) mg/dL AST (17-59) U/L ALT (4-49) U/L Alkaline Phosphatase (38-126) U/L Ammonia (<30) umol/L Troponin I (0.000-0.034) ng/mL Total Protein (6.3-8.2) g/dL Albumin (3.5-5.0) g/dL Amylase (30-110) U/L Lipase (23-300) U/L Urine Color Yellow Urine Appearance Clear (Clear) Urine pH 6.0 (5.0-8.0) Ur Specific [place] 1.018 (1.001-1.035) Urine Protein 1+ H (Negative) Urine Glucose (UA) Negative (Negative) Urine Ketones Negative (Negative) Urine Blood Negative (Negative) Urine Nitrite Negative (Negative) Urine Bilirubin 1+ H (Negative) Urine Urobilinogen 6.0 (<2.0) mg/dL Ur Leukocyte Esterase Negative (Negative) Urine RBC <1 (0-5) /hpf Urine WBC 2 (0-5) /hpf Ur Squamous Epith Cells <1 (0-4) /hpf Urine Mucus Rare H (None) /hpf Urine Opiates Screen Detected H (NotDetected) Ur Oxycodone Screen Not Detected (NotDetected) Urine Methadone Screen Not Detected (NotDetected) Ur Propoxyphene Screen Not Detected (NotDetected) Ur Barbiturates Screen Not Detected (NotDetected) U Tricyclic Antidepress Detected H (NotDetected) Ur Phencyclidine Scrn Not Detected (NotDetected) Ur Amphetamines Screen Not Detected (NotDetected) U Methamphetamines Scrn Not Detected (NotDetected) U Benzodiazepines Scrn Not Detected (NotDetected) Urine Cocaine Screen Not Detected (NotDetected) U Marijuana (THC) Screen Not Detected (NotDetected) Serum Alcohol mg/dL 01/23/23 01/23/23 Range/Units 15:40 19:38 WBC (3.8-10.6) k/uL RBC (4.30-5.90) m/uL Hgb (13.0-17.5) gm/dL Hct (39.0-53.0) % MCV (80.0-100.0) fL MCH (25.0-35.0) pg MCHC (31.0-37.0) g/dL RDW (11.5-15.5) % Plt Count (150-450) k/uL MPV Neutrophils % % Lymphocytes % % Monocytes % % Eosinophils % % Basophils % % Neutrophils # (1.3-7.7) k/uL Lymphocytes # (1.0-4.8) k/uL Monocytes # (0-1.0) k/uL Eosinophils # (0-0.7) k/uL Basophils # (0-0.2) k/uL PT (9.0-12.0) sec INR (<1.2) APTT (22.0-30.0) sec Sodium (137-145) mmol/L Potassium (3.5-5.1) mmol/L Chloride (98-107) mmol/L Carbon Dioxide (22-30) mmol/L Anion Gap mmol/L BUN (9-20) mg/dL Creatinine (0.66-1.25) mg/dL Est GFR (CKD-EPI)AfAm (>60 ml/min/1.73 sqM) Est GFR (CKD-EPI)NonAf (>60 ml/min/1.73 sqM) Glucose (74-99) mg/dL POC Glucose (mg/dL) (70-110) mg/dL POC Glu Toy Mechanic ID Lactic Ac Sepsis Rflx Y Plasma Lactic Acid Sam 2.6 H* (0.7-2.0) mmol/L Calcium (8.4-10.2) mg/dL Total Bilirubin (0.2-1.3) mg/dL Conjugated Bilirubin (0.0-0.3) mg/dL Unconjugated Bilirubin (0.0-1.1) mg/dL Delta Bilirubin (0.0-0.2) mg/dL AST (17-59) U/L ALT (4-49) U/L Alkaline Phosphatase (38-126) U/L Ammonia (<30) umol/L Troponin I (0.000-0.034) ng/mL Total Protein (6.3-8.2) g/dL Albumin (3.5-5.0) g/dL Amylase (30-110) U/L Lipase (23-300) U/L Urine Color Urine Appearance (Clear) Urine pH (5.0-8.0) Ur Specific [place] (1.001-1.035) Urine Protein (Negative) Urine Glucose (UA) (Negative) Urine Ketones (Negative) Urine Blood (Negative) Urine Nitrite (Negative) Urine Bilirubin (Negative) Urine Urobilinogen (<2.0) mg/dL Ur Leukocyte Esterase (Negative) Urine RBC (0-5) /hpf Urine WBC (0-5) /hpf Ur Squamous Epith Cells (0-4) /hpf Urine Mucus (None) /hpf Urine Opiates Screen (NotDetected) Ur Oxycodone Screen (NotDetected) Urine Methadone Screen (NotDetected) Ur Propoxyphene Screen (NotDetected) Ur Barbiturates Screen (NotDetected) U Tricyclic Antidepress (NotDetected) Ur Phencyclidine Scrn (NotDetected) Ur Amphetamines Screen (NotDetected) U Methamphetamines Scrn (NotDetected) U Benzodiazepines Scrn (NotDetected) Urine Cocaine Screen (NotDetected) U Marijuana (THC) Screen (NotDetected) Serum Alcohol mg/dL - EKG Data -: EKG Interpreted by Me EKG Comments: 12-lead Electrocardiogram Interpretation Note EKG was reviewed and interpreted by myself. 12-lead ECG performed at 1254 is interpreted by me as revealing normal sinus rhythm with first-degree AV block at a rate of at 60 beats per minute. Left axis deviation. DE interval is 264 ms, QRS durations 146 seconds, QTC is 436 ms. Patient has a chronic bifascicular block, as well as right bundle-branch block morphology seen on prior EKGs. Chronic nonspecific T wave abnormalities seen on prior EKGs.. There were no acute ST or T wave abnormalities to suggest myocardial ischemia or injury. R wave progression across the precordium was satisfactory. By my interpretation this EKG is non-diagnostic for acute ischemia. Compared with EKG from August 2020. Critical Care Time Critical Care Time: Yes Total Critical Care Time: 35 Disposition Clinical Impression: Choledocholithiasis, Abdominal pain, Hyperbilirubinemia Disposition: OTHER INSTITUTION NOT DEFINED Condition: Serious Referrals: Calin Meneses MD [Primary Care Provider] - 1-2 days Time of Disposition: 18:00 - Out of Hospital Transfer - Req. Specs Out of Hospital Transfer - Requested Specifics: Other Emergency Center (Transferred to [facility] for GI evaluation.)
[2023-01-23 13:50] LABS: Glucose,Whole Blood 137 mg/dL (70-110)
[2023-01-23 13:50] LABS: Basophils % (A) 0 %; Eosinophils # (A) 0.1 k/uL (0-0.7); Eosinophils % (A) 1 %; HCT 40.9 % (39.0-53.0); HGB 13.3 gm/dL (13.0-17.5); Lymphocytes # (A) 0.4 k/uL (1.0-4.8); Lymphocytes % (A) 3 %; MCH 28.9 pg (25.0-35.0); MCHC 32.6 g/dL (31.0-37.0); MCV 88.5 fL (80.0-100.0); Mean Platelet Volume 8.6; Monocytes # (A) 0.6 k/uL (0-1.0); Monocytes % (A) 4 %; Neutrophils # (A) 14.1 k/uL (1.3-7.7); Neutrophils % (A) 93 %; Platelet Count 144 k/uL (150-450); RBC 4.62 m/uL (4.30-5.90); WBC 15.2 k/uL (3.8-10.6)
[2023-01-23 14:10] LABS: INR 1.2 (<1.2); Partial Thromboplastin Time 27.2 sec (22.0-30.0); Prothrombin Time 12.6 sec (9.0-12.0)
[2023-01-23 14:16] LABS: ALT 539 U/L (4-49); AST 592 U/L (17-59); African American GFR (CKD) 65 (>60 ml/min/1.73 sqM); Albumin 4.1 g/dL (3.5-5.0); Alcohol <10 mg/dL; Alkaline Phosphatase 292 U/L (38-126); Anion Gap 14 mmol/L; Blood Urea Nitrogen 22 mg/dL (9-20); Calcium 9.2 mg/dL (8.4-10.2); Carbon Dioxide 27 mmol/L (22-30); Chloride 97 mmol/L (98-107); Glucose 145 mg/dL (74-99); Non-African American GFR(CKD) 56 (>60 ml/min/1.73 sqM); Potassium 4.4 mmol/L (3.5-5.1); Sodium 138 mmol/L (137-145); Total Bilirubin 6.3 mg/dL (0.2-1.3); Total Protein 7.2 g/dL (6.3-8.2)
--- NOTE | 2023-01-23 14:20 | CT ---
EXAMINATION TYPE: CT brain wo con DATE OF EXAM: 01/23/2023 HISTORY: AMS CT DLP: 1129.8 mGycm. Automated Exposure Control for Dose Reduction was Utilized. TECHNIQUE: CT scan of the head is performed without contrast. COMPARISON: None. FINDINGS: There is no acute intracranial hemorrhage or midline shift identified. There is mild to m oderate diffuse ventricular and sulcal prominence consistent with diffuse age-related cerebral atroph y. Ly-white matter differentiation is preserved. Scleral calcification bilateral globes is present. The paranasal sinuses are grossly clear IMPRESSION: No acute intracranial hemorrhage or midline shift.
--- NOTE | 2023-01-23 14:27 | XR ---
EXAMINATION TYPE: XR chest 2V DATE OF EXAM: 01/23/2023 COMPARISON: Outside chest x-ray August 16, 2013 HISTORY: Altered mental status and weakness. TECHNIQUE: Frontal and lateral views of the chest are obtained. FINDINGS: Persistent cardiomegaly with multilead pacemaker/defibrillator. Overlying sternal wires an d mediastinal clips are redemonstrated. New small right pleural effusion. Surgical clips epigastric r egion redemonstrated. The osseous structures are intact. IMPRESSION: Chronic changes and cardiomegaly with new small right pleural effusion.
[2023-01-23 14:55] LABS: Appearance,Urine Clear (Clear); Bilirubin,Urine 1+ (Negative); Blood,Urine Negative (Negative); Color,Urine Yellow; Glucose,Urine (UA) Negative (Negative); Ketones,Urine Negative (Negative); Leukocyte Esterase,Urine Negative (Negative); Mucus,Urine Rare /hpf; Nitrite,Urine Negative (Negative); Protein,Urine 1+ (Negative); RBC,Urine <1 /hpf (0-5); Specific Gravity,Urine 1.018 (1.001-1.035); Squamous Epithelial Cell,Urine <1 /hpf (0-4); WBC,Urine 2 /hpf (0-5)
[2023-01-23 15:02] LABS: Amphetamine Screen,Urine Not Detected (NotDetected); Barbiturate Screen,Urine Not Detected (NotDetected); Benzodiazepines Screen,Urine Not Detected (NotDetected); Cocaine Screen,Urine Not Detected (NotDetected); Methadone Screen, Urine Not Detected (NotDetected); Opiate Screen,Urine Detected (NotDetected); Oxycodone Screen, Urine Not Detected (NotDetected); Phencyclidine Screen,Urine Not Detected (NotDetected); Tricyclic Antidepressant,Urine Detected (NotDetected); Urn Cannabinoid Scrn Not Detected (NotDetected)
[2023-01-23] MEDS ORDERED: PIPERACILLIN-TAZOBACTAM 3.375 GM in SODIUM CHLORIDE 0.9% 100 ML IVPB STA (15:35)
[2023-01-23] MEDS ORDERED: VANCOMYCIN IV PER PHARMACY 1 EACH MISC MISCELLANE PRN (15:35)
[2023-01-23] MEDS ORDERED: VANCOMYCIN 1,500 MG in SODIUM CHLORIDE 0.9% 500 ML 500 ML IVPB STA (15:39)
[2023-01-23] MEDS ORDERED: SODIUM CHLORIDE 0.9% 1,000 ML IV STA (16:05)
--- NOTE | 2023-01-23 16:22 | US ---
EXAMINATION TYPE: US gallbladder DATE OF EXAM: 01/23/2023 COMPARISON: NONE CLINICAL INDICATION: Male, 77 years old with history of eval for cholecystitis; TECHNIQUE: Multiple sonographic images of the right upper quadrant are obtained. FINDINGS: EXAM MEASUREMENTS: Liver Length: 15.5 cm Gallbladder Wall: 0.8 cm Right Kidney: 11.3 x 5.0 x 4.5 cm TIN FLIPPER NOTES: technical limitations due to large amount of overlying bowel content Pancreas: Obscured by bowel gas Liver: limited evaluation, slightly hypoechoic appearance to the liver parenchyma being be on a tech nical basis. Somewhat starry zackary pattern with echogenic periportal fat. No focal lesion seen. Gallbladder: thickened wall Evidence for sonographic Saunders's sign: no CBD: Obscured by overlying bowel gas Right Kidney: cystic area upper pole = 1.7 x 1.8 x 1.6cm. No hydronephrosis. IMPRESSION: 1. Gallbladder wall thickening up to 8 mm but without any gallstones or hydropic change. Sonographic Saunders sign is also reported absent. The gallbladder wall thickening is nonspecific and may be seen w ith adjacent inflammation or fluid overload states. HIDA scan if persistent concern for acute cholecy stitis. 2. Somewhat hypoechoic appearance to the liver parenchyma. This could be on a technical basis. Correl ate with LFTs and patient risk factors to exclude acute hepatitis. 3. The bile duct and pancreas are obscured.
[2023-01-23 16:24] LABS: Bilirubin, Conjugated 2.5 mg/dL (0.0-0.3); Bilirubin, Delta 1.2 mg/dL (0.0-0.2); Bilirubin,Unconjugated 2.2 mg/dL (0.0-1.1); Total Bilirubin 5.9 mg/dL (0.2-1.3)
--- NOTE | 2023-01-23 17:39 | CT ---
EXAMINATION TYPE: CT abdomen pelvis w con DATE OF EXAM: 01/23/2023 COMPARISON: Ultrasound same date INDICATION: Abdominal pain, eval for choledocholithiasis. DLP: 1319.3 mGycm, Automated exposure control for dose reduction was used. CONTRAST: 80 mL of Isovue 300. Study performed without Oral Contrast TECHNIQUE: Axial images were obtained from above the diaphragm to the pubic rami in the axial plane a t 5 mm thick sections. Reconstructed images are reviewed on the computer in the coronal plane. FINDINGS: Limited CT sections are obtained the lung bases. There is a minimal right pleural effusion.. CT ABDOMEN: There is a 7.0 x 4.0 cm fluid like collection within the anterior left subcutaneous tissu es Liver: Normal. No biliary dilatation is evident. Spleen: Normal Pancreas: Some fatty infiltration of the pancreas is present. No pancreatic duct dilatation is eviden t. Adrenal glands: The adrenal glands are normal. Gallbladder: Small gallstones are within the dependent gallbladder. No common bile duct dilatation is identified . Kidneys: No masses are evident. No hydronephrosis is present. No cysts are present. Delayed images were obtained through the kidneys, which remain unremarkable. Aorta: Dense Vascular calcification is within the aorta. Inferior vena cava: Normal. CT PELVIS: Loops of bowel within the abdomen and pelvis are normal. This study is without oral contrast limi ting evaluation. Fecal debris is within the colon. Appendix: Not identified. No dilated to a structure or inflammatory changes evident. Urinary bladder: Normal. Genitourinary structures: Prostate is somewhat prominent. Osseous structures: No suspicious lytic or sclerotic lesions. IMPRESSIONS: 1. No suspicious dilated hepatic, pancreatic or bile ducts. Small calcifications appear to be within the dependent gallbladder. 2. Minimal right pleural effusion
[2023-01-23 22:18] VITALS: BP 181/82; PULSE 79; RESP 16; TEMP 98.4
[2023-01-24] MEDS ORDERED: VANCOMYCIN 1,500 MG in SODIUM CHLORIDE 0.9% 500 ML 500 ML IVPB SCH (16:00)
== END 2023-01-23 22:19 | disposition other institution (70) ==
LOC: EC 12:31
DX: K80.50 Calculus of bile duct without cholangitis or cholecystitis without obstruction (principal); J90 Pleural effusion, not elsewhere classified; E11.9 Type 2 diabetes mellitus without complications; E78.5 Hyperlipidemia, unspecified; G47.30 Sleep apnea, unspecified; I10 Essential (primary) hypertension; I25.2 Old myocardial infarction; I48.91 Unspecified atrial fibrillation; Z79.01 Long term (current) use of anticoagulants; Z79.82 Long term (current) use of aspirin; Z79.84 Long term (current) use of oral hypoglycemic drugs; Z79.899 Other long term (current) drug therapy; Z87.891 Personal history of nicotine dependence
CPT/HCPCS: 36415; 80053; 82140; 82150; 82248; 83605; 83690; 84484; 85025; 85610; 85730; 81001; 87040; 80306; 87077; 87186; 71046; 76705; 70450; 74177; 99291; 96365; 96366 ×2; 96361 ×2; G0480; J2543; J3370; Q9967; 80320